=== PATIENT | female | born 1955 | race Caucasian/White ===

== ENCOUNTER 2018-12-13 10:47 | Inpatient (IN) ==
--- NOTE | 2018-12-12 15:10 | EKG Report ---
Test Performed on : 12/12/2018 2:45:10 PM Test Reason : PAT Blood Pressure : / mmHG Vent. Rate : 081 BPM Atrial Rate : 081 BPM P-R Int : 120 ms QRS Dur : 082 ms QT Int : 370 ms P-R-T Axes : 028 078 018 degrees QTc Int : 429 ms Normal sinus rhythm. Normal ECG No previous ECGs available Confirmed by Darleen CAMARENA, Jonathon Xie ([id number]) on 12/12/2018 4:20:34 PM
[2018-12-12 15:21] LABS: BASO# 0.03 X1000 (0.0-0.2); BASO% 0.2 % (0.0-0.8); EOS# 0.03 X1000 (0.0-0.7); EOS% 0.2 % (0.0-10.0); HEMATOCRIT 32.7 % (37.0-47.0); HEMOGLOBIN 10.5 g/dL (12.0-16.0); IMM GRAN# 0.14 X1000 (0.0-0.04); LYMPH# 1.11 X1000 (1.2-3.4); LYMPH% 7.9 % (20.5-51.1); MCH 26.7 PG (27-31); MCHC 32.1 g/dL (33-37); MCV 83.2 FL (81-99); MONO# 1.24 X1000 (0.11-0.59); MONO% 8.9 % (1.7-9.3); MPV 9.9 FL (7.4-10.4); NEUT# 11.45 X1000 (1.4-6.5); NEUT% 81.8 % (42.2-75.2); PLT 549 X1000 (130-400); RBC 3.93 XMIL (4.2-5.4); RDW 13.3 % (11.5-14.5)
[2018-12-12 15:54] LABS: ESTIMATED GFR > 60
[2018-12-12 15:57] LABS: AGAP 11; BUN 21 mg/dL (8-22); CALCIUM 9.9 mg/dL (8.8-10.2); CHLORIDE 88 mmol/L (98-107); COSMO 270; CREATININE 0.8 mg/dL (0.5-0.9); GLUCOSE 382 mg/dL (70-104); POTASSIUM 4.5 mmol/L (3.5-5.1); SODIUM 125 mmol/L (136-145); TCO2 26 mmol/L (25-35)
[2018-12-13] MEDS ORDERED: LR 1,000 ML ONE (11:30)
[2018-12-13] MEDS ORDERED: KEFZOL 1 GM/D5W 2 GM/100 ML IVPB ONE (11:30)
[2018-12-13] MEDS ORDERED: REGLAN ONE (12:01)
[2018-12-13] MEDS ORDERED: TRANSDERM-SCOP ONE (12:01)
[2018-12-13] MEDS ORDERED: HUMULIN R ONE (12:01)
[2018-12-13] MEDS ORDERED: PEPCID ONE (12:01)
[2018-12-13] MEDS ORDERED: SENSORCAINE 0.5%-EPI 1:200,000 ONE (12:28)
[2018-12-13] MEDS ORDERED: NORCO-10 ONE (12:40)
[2018-12-13] MEDS ORDERED: XYLOCAINE-MPF 2% ONE (13:15)
[2018-12-13] MEDS ORDERED: ROBINUL ONE (13:15)
[2018-12-13] MEDS ORDERED: QUELICIN (DOSE) ONE (13:19)
[2018-12-13] MEDS ORDERED: NORCURON ONE (13:20)
[2018-12-13] MEDS ORDERED: STERILE WATER INJ. ONE (13:20)
[2018-12-13] MEDS ORDERED: FENTANYL ONE (13:21)
[2018-12-13] MEDS ORDERED: LUBRIFRESH PM OPH OINTMENT ONE (13:22)
[2018-12-13] MEDS ORDERED: DIPRIVAN 1% ONE (13:22)
[2018-12-13] MEDS ORDERED: HUMULIN R SUBQ ONE (16:00)
[2018-12-13] MEDS ORDERED: NS 1,000 ML ONE (16:44)
[2018-12-13] MEDS ORDERED: VANCOMYCIN IV PER PHARMACY MISC SCH (17:15)
--- NOTE | 2018-12-13 18:35 | OPERATIVE NOTE ---
PROCEDURE DATE: 12/13/2018 PREOPERATIVE DIAGNOSIS: Left shoulder abscess and possible septic left shoulder joint. POSTOPERATIVE DIAGNOSIS: Left shoulder anterior abscess and infected left shoulder joint. PROCEDURE: Irrigation and debridement of anterior left shoulder abscess and irrigation, lavage and drainage of the left shoulder glenohumeral joint as well as diagnostic arthroscopy. ANESTHESIA: General. SURGEON: Tommie Paniagua MD. SPORTS LAWYER: CRISTI Leahy COMPLICATIONS: None. BLOOD LOSS: Minimal. DESCRIPTION OF PROCEDURE: Patient was brought to the operative suite and placed in supine position. After successful administration of general anesthesia, patient was placed in the beach chair position. Left shoulder was prepped and draped in usual sterile fashion. A transverse incision was made overlying the anterior carbuncle. This was dissected sharply through the skin. There was obvious purulent material. This was cultured and then the wound was copiously irrigated and debrided of all necrotic material that it went all the way down to the acromioclavicular joint and into the joint. This was copiously irrigated with normal saline containing irrigant and Vashe irrigation. A trocar was then entered into the glenohumeral joint posteriorly and the obvious pus was flowing from the glenohumeral joint as well. An anterior portal was made, and the shoulder was copiously irrigated with normal saline containing irrigant and Vashe irrigation. Once we completed this, it was inspected with the arthroscope and found to have significant degenerative changes in here shoulder as well as compromised rotator cuff. A drain was placed through the anterior portal into the glenohumeral joint and then the trocar was removed leaving the drain in place. Another drain was placed exiting laterally from the carbuncle. This drain was buried into the acromioclavicular joint. The wounds were reapproximated with interrupted nylon suture, and a sterile dressing was applied. The patient tolerated the procedure without complication. At the end of the procedure, all counts were correct. The patient was transferred to the recovery room in stable condition. cc: Tommie Paniagua MD
[2018-12-13] MEDS: VANCOMYCIN 2 GM in NS 500 ML IV SCH (18:43)
--- NOTE | 2018-12-13 19:46 | INFECTIOUS DISEASE CONSULT REP ---
DATE: 12/13/2018 CONCLUSION: The patient has a left shoulder abscess and septic arthritis. RECOMMENDATIONS: I agree with the decision to treat the patient with vancomycin. Some of the side effects of the antibiotic, including renal toxicity and ototoxicity, have been explained to the patient who agrees with treatment. DISCUSSION: The patient tells me that approximately 4 to 5 weeks ago she jerked her left shoulder forward and backward, but did not run into any trauma to the shoulder such as falling on it or hitting it against the door. The shoulder progressively started swelling. The skin became erythematous and the patient had fever. She underwent surgery today by Dr. Paniagua and an abscess was found along with purulence in the shoulder joint. Laboratory studies thus far, the left shoulder Gram stain showed no organisms. The culture is pending. Glucose was 382, creatinine was 0.8. GFR is greater than 60. CBC shows a white count of 14,000, hemoglobin 10.5 and platelet count 549,000. The patient has never been . REVIEW OF SYSTEMS: Patient's hearing and vision, no loss of hearing or vision. Bones, joints, muscles: See present illness. Neck: No stiffness. Respiratory: No cough or shortness of breath. Cardiac: No chest pain or palpitations. GI: No nausea, vomiting, or diarrhea. : No dysuria or flank pain. Endocrine: The patient has diabetes but not thyroid disease. Neurologic: No seizures. No loss of motor or sensory function except with her left arm since it has been hurting her. She cannot move it well and it hurts her a lot when she tries to. 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 PREVIOUS HOSPITALIZATIONS AND OPERATIONS: The patient had bilateral Achilles tendon surgeries, right carpal tunnel surgery, a right rotator cuff procedure and placement of a coronary artery stent. MEDICAL DISEASES: Obesity, diabetes mellitus, hypertension, coronary artery disease, osteoarthritis, and hyperlipidemia. INFECTIOUS DISEASE HISTORY: Positive for pneumonia and UTI. FAMILY HISTORY: Positive for diabetes mellitus, hypertension, myocardial infarction, stroke and cancer. SOCIAL HISTORY: [place] She is single. Occasionally, her brother spends time with her. She has 2 dogs and a cat for pets. She has an allergy to penicillin manifested by swelling and/or rash. She does not smoke cigarettes, drink alcoholic beverages or abuse drugs. HOME MEDICATIONS: Involve aspirin, Lipitor, Plavix, Neurontin, hydrocodone, insulin, lisinopril, Zoloft and Januvia. PHYSICAL EXAMINATION: Vital Signs: Temperature is 98 degrees, pulse 94, respirations 18, blood pressure 133/75. The patient is 5 feet 5 inches tall, weighs 232 pounds. General: This is an obese, middle-aged female. She is in no acute distress. Head/eyes/ears/nose/throat: She can hear my spoken words and see near objects. She does not have any white patches in her mouth. Neck: No meningismus. Lungs: Clear to auscultation. Cardiovascular: Regular heart rate. Abdomen: Soft and nontender. Bones, joints, muscles: The patient has a large dressing around her left shoulder. The dressing is intact. Neurologic: The patient is alert. She can move her right arm and both legs. She has her left arm with a large dressing on it and in a sling. The patient's memory as regarding her medical history is intact. Integument: No rash. Thank you for the consult. cc: MD Tommie Manzano MD
--- NOTE | 2018-12-13 20:45 | CONSULTATION ---
DATE OF CONSULTATION: 12/13/2018 REASON FOR CONSULT: Medical management. HISTORY OF PRESENTING COMPLAINT: Ms. Rodriguez is a 63-year-old female who was admitted under Orthopedic Team after she underwent I and D of the left shoulder because of an abscess, and she has been admitted because of other numerous comorbidities for medical management at this point. Ms. Rodriguez has a history of diabetes, hypertension, dyslipidemia, coronary artery disease status post stents about 4 years ago. She seems to have been in her regular state of health until about a month ago she started having excruciating pain and swelling of the left shoulder. Apparently, she went to an urgent care. She was given some pain medication. That did not help. She went back about a week later. She was told that it could be gout, so she was given medication accordingly, which did not help so she was referred to go and see orthopedics about 4 days ago where she was evaluated by Dr. Paniagua, and a decision for intervention was made. The patient was subsequently brought in on outpatient basis, and surgery was done today. PAST MEDICAL HISTORY: 1. Diabetes mellitus. 2. Dyslipidemia. 3. Hypertension. 4. Coronary artery disease status post stents. HOME MEDICATIONS: Include: 1. Lisinopril 30 mg daily. 2. Sertraline 50 mg p.o. daily. 3. Clopidogrel 75 mg p.o. daily. 4. Januvia 100 mg p.o. daily. 5. Insulin glargine 40 subcutaneous at bedtime. 6. Aspart 20 units with meals. 7. Atorvastatin 80 mg p.o. daily. 8. [place] 10 mg q.8 hours. PAST SURGICAL HISTORY: 1. Left Achilles heel tendon removal. 2. Right rotator cuff surgery. 3. Lumbar neurosurgical procedure. 4. Recent left shoulder I and D. FAMILY HISTORY: Diabetes mellitus in brother. SOCIAL HISTORY: Patient lives here in [place] with a brother that she normally takes care of because of very bad diabetes mellitus. Ms. Rodriguez denies any alcohol use or tobacco use. No recreational drug use. ALLERGIES: To penicillin. REVIEW OF SYSTEMS: A 14-point review of systems conducted with Ms. Rodriguez is unremarkable except what we have in the HPI. She denies any fever. No chills. No appetite changes. No diarrhea. No chest pain. No shortness of breath. PHYSICAL EXAMINATION: Current vitals: Blood pressure is 133/74, pulse of 94, respirations is 18, temperature is 98.1 degrees. General: Ms. Rodriguez is a 63-year-old female. She was in bed. She does not seem to be in any cardiopulmonary distress. ENT: Mucosa is pink and moist. Anicteric. Acyanotic. Neck: Supple. There is no JVD. No carotid bruit. Trachea is midline. There is no thyromegaly. Head: Normocephalic and atraumatic. Respiratory system: There is good air entry bilaterally. No crepitations. No rhonchi. No accessory muscle use. Cardiovascular: Regular rate and rhythm. No murmurs, no rubs, no gallops. [place] beat is at 5th intercostal space, midclavicular line. Gastrointestinal: Abdomen is soft. It is nontender. Bowel sounds present. There is no hepatosplenomegaly. Inguinal region is unremarkable. Genitourinary: Was not examined. Extremities: No pedal edema. Distal pulses are present. Central nervous system: Patient is awake, alert, oriented. Executive functions are intact. Motor is 5/5 in all extremities. Sensation is intact. Cranial nerves 2 through 12 have been grossly examined. They are intact. Musculoskeletal: The left shoulder is currently covered in sterile dressing. There is a draining system in place after the recent surgery. Psychiatric: The patient is very cooperative and has good understanding and judgment. REVIEW OF OPERATIVE REPORT: Showed that the procedure performed was an irrigation and debridement of an anterior left shoulder abscess and irrigation, lavage and drainage of the left shoulder glenohumeral joint as well as diagnostic arthroscopy. ASSESSMENT: 1. Left shoulder septic arthritis. Patient is status post incision and drainage. I believe cultures were done during this surgery so we will be waiting on culture report. 2. Mild clinical volume depletion. Patient is currently on IV fluids. 3. Uncontrolled diabetes with glucose level of 382. We are going to restart the patient back on insulin regimen, and we will also check her A1c. 4. History of dyslipidemia. We will start the patient on home medications. 5. History of coronary artery disease, currently asymptomatic. The patient will be started back on aspirin, lisinopril, atorvastatin. Plavix has been withheld until it is okay with surgery about hemostasis. In general, Ms. Rodriguez is currently on IV vancomycin which we agree. We are going to be pending the culture report. We have restarted her back on her home medications. We will also gently hydrate her overnight and recheck on her electrolytes. We will re-evaluate her hydration status tomorrow and recheck on her electrolytes. We thank you for the opportunity to assist in the care of Ms. Rodriguez. cc: MD Tommie Larry MD
[2018-12-13] MEDS ORDERED: LANTUS INSULIN SUBQ SCH (21:00)
[2018-12-13] MEDS: NORCO-7.5 PO PRN (21:17)
[2018-12-13] MEDS: PERIDEX MT SCH (21:20)
[2018-12-13] MEDS: NEURONTIN PO SCH (21:21)
[2018-12-13] MEDS: HUMALOG SUBQ SCH (23:20)
[2018-12-13] MEDS: NS 1,000 ML IV SCH (23:27)
[2018-12-14] MEDS ORDERED: HUMALOG SUBQ ONE (02:00)
[2018-12-14] MEDS: NORCO-10 PO PRN ×2 (02:35→22:18)
[2018-12-14 06:32] LABS: HEMOGLOBIN A1C 7.5 % (4.8-6.0)
[2018-12-14] MEDS: HUMALOG SUBQ SCH ×7 (06:54→22:17)
[2018-12-14] MEDS ORDERED: HUMALOG SUBQ SCH (08:00)
[2018-12-14] MEDS: ASPIRIN EC PO SCH (09:10)
[2018-12-14] MEDS: ZOLOFT PO SCH (09:11)
[2018-12-14] MEDS: PRINIVIL PO SCH (09:12)
[2018-12-14] MEDS: LIPITOR PO SCH (09:12)
[2018-12-14] MEDS: NEURONTIN PO SCH ×2 (09:13→22:18)
[2018-12-14] MEDS: NS 1,000 ML IV SCH ×2 (09:15→14:14)
[2018-12-14] MEDS: PERIDEX MT SCH ×2 (09:15→22:16)
--- NOTE | 2018-12-14 12:11 | ORTHOPAEDICS PROGRESS NOTE ---
DATE: 12/14/2018 SUBJECTIVE: The patient is a pleasant 63-year-old female who is 1 day status post irrigation and debridement of anterior left shoulder abscess and arthroscopic lavage of left shoulder per Dr. Paniagua. The patient is currently sitting in the chair and resting comfortably. OBJECTIVE: The patient is afebrile. Her cultures are pending. She is able to flex all of her fingers. Her output of her Hemovac has been 20 mL. IMPRESSION: Status post incision and debridement and arthroscopic lavage, left shoulder. PLAN: At this point, we will change her dressing the discontinue her drain. We will continue her IV antibiotics and await the cultures and Dr. Gandhi' recommendations. cc: MD Tommie García MD
--- NOTE | 2018-12-14 14:06 | PROGRESS NOTE ---
DATE: 12/14/2018 SUBJECTIVE: This morning Ms. Rodriguez refers to be doing a lot better. She was sitting up in a chair at the time of the encounter. She denies any new complaints. She was requesting to know when she will potentially be discharged. OBJECTIVE: Vital signs: Blood pressure is 101/47, pulse of 66, respirations 20, temperature 98.4 degrees. General exam: Ms. Rodriguez is a 63-year-old female. She was sitting up in a chair in no distress. HEENT: Mucosa is pink and moist. Anicteric. Acyanotic. Neck: Supple. Chest: Good air entry bilaterally. No crepitations. No rhonchi. Cardiovascular: Regular rate and rhythm. No murmurs, no rubs, no gallops. GI: Abdomen is soft, nontender. Bowel sounds present. Extremities: No pedal edema. Distal pulses are present. 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 Musculoskeletal: There is still a dressing over the left shoulder, and the draining system is still in place. LAB: No lab work for this morning. So far, left shoulder culture showing gram-positive cocci. We are still awaiting for the ID and sensitivity. ASSESSMENT: 1. Left shoulder abscess with septic arthritis. Patient is status post and incision and drainage. So far, the wound culture is showing gram-positive cocci. Patient is currently on intravenous vancomycin. We are going to continue with the current antimicrobial therapy. Infectious Disease is on board. 2. My clinical volume depletion improved with intravenous resuscitation. 3. Uncontrolled diabetes mellitus. We will continue with insulin regimen. Patient's A1c is 7.5, so we will put her back on her home regimen. 4. History of coronary artery disease, currently asymptomatic. 5. Dyslipidemia. Patient is on statin medication. PLAN: So, in general, I think Ms. Rodriguez is doing fairly okay after surgery. We are still pending the culture report; it looks like it is growing gram-positive cocci. The patient is on IV vancomycin. Orthopedics and ID are on board. cc: MD Tommie Larry MD
[2018-12-14] MEDS: NORCO-7.5 PO PRN (14:10)
[2018-12-14] MEDS: VANCOMYCIN 2 GM in NS 500 ML IV SCH (18:35)
[2018-12-14] MEDS: LANTUS INSULIN SUBQ SCH (22:16)
[2018-12-15 06:26] LABS: BASO# 0.04 X1000 (0.0-0.2); BASO% 0.3 % (0.0-0.8); EOS% 0.7 % (0.0-10.0); HEMATOCRIT 32.1 % (37.0-47.0); HEMOGLOBIN 10.1 g/dL (12.0-16.0); IMM GRAN# 0.35 X1000 (0.0-0.04); IMM GRAN% 2.3 % (0.0-0.5); LYMPH# 1.65 X1000 (1.2-3.4); LYMPH% 10.8 % (20.5-51.1); MCH 26.6 PG (27-31); MCHC 31.5 g/dL (33-37); MCV 84.5 FL (81-99); MONO# 1.14 X1000 (0.11-0.59); MONO% 7.5 % (1.7-9.3); MPV 9.8 FL (7.4-10.4); NEUT# 11.96 X1000 (1.4-6.5); NEUT% 78.4 % (42.2-75.2); PLT 536 X1000 (130-400); RDW 13.7 % (11.5-14.5); WBC 15.24 X1000 (4.8-10.8)
[2018-12-15] MEDS: NORCO-10 PO PRN (06:33)
[2018-12-15 07:13] LABS: AGAP 10; ALBUMIN 2.3 g/dL (3.5-5.0); BUN 19 mg/dL (8-22); CALCIUM 8.8 mg/dL (8.8-10.2); CHLORIDE 100 mmol/L (98-107); COSMO 280; CREATININE 0.8 mg/dL (0.5-0.9); ESTIMATED GFR > 60; GLUCOSE 209 mg/dL (70-104); PHOSPHORUS 3.6 mg/dL (2.7-4.5); POTASSIUM 4.8 mmol/L (3.5-5.1); SODIUM 136 mmol/L (136-145); TCO2 26 mmol/L (25-35)
[2018-12-15] MEDS: NS 1,000 ML IV SCH (08:22)
[2018-12-15] MEDS: HUMALOG SUBQ SCH ×7 (08:36→22:26)
[2018-12-15] MEDS: ASPIRIN EC PO SCH (08:48)
[2018-12-15] MEDS: NEURONTIN PO SCH ×2 (08:49→22:28)
[2018-12-15] MEDS: ZOLOFT PO SCH (08:50)
[2018-12-15] MEDS: PRINIVIL PO SCH (08:51)
[2018-12-15] MEDS: PERIDEX MT SCH ×2 (08:51→22:27)
[2018-12-15] MEDS: LIPITOR PO SCH (08:51)
--- NOTE | 2018-12-15 09:05 | ORTHOPAEDICS PROGRESS NOTE ---
DATE: 12/15/2018 SUBJECTIVE: The patient is a pleasant, 63-year-old female who is 2 days status post incision and drainage, and arthroscopic lavage of left shoulder per Dr. Paniagua. The patient is resting comfortably. OBJECTIVE: On physical exam, the patient's dressing is intact. She is able flex and extend all of her fingers. Good manager occupational strength. Her WBC is 15.24, hemoglobin is 10.1, hematocrit is 32.1, platelets are 536,000. Her culture is revealing Staphylococcus aureus. IMPRESSION: Postoperative day #2 status post incision and drainage, and arthroscopic lavage of left shoulder. PLAN: At this point, the patient will continue her IV antibiotics per Dr. Gandhi. I did discuss with Dr. Ganhdi and the patient will require home IV antibiotics. cc: MD Tommie García MD
--- NOTE | 2018-12-15 10:25 | INFECTIOUS DISEASE PROGRESS NO ---
DATE: 12/15/2018 HISTORY OF PRESENT ILLNESS: The patient has an oxacillin sensitive Staph aureus left shoulder abscess and septic arthritis. MEDICATIONS: Because the patient has a severe penicillin allergy manifested by hives, I am going to be treating the patient with vancomycin. PHYSICAL EXAMINATION: Vital Signs: Temperature is 98.8 degrees, pulse 78, respirations 20, blood pressure 130/51. General: This is an obese, middle-aged female. She is in no acute distress. Head, eyes, ears, nose, and throat: She can hear my spoken words and see near objects. She does not have any white coating on her tongue. Neck: She does not have any pain in her neck when she moves her head or her neck. Lungs: Clear to auscultation. Cardiovascular: Heart rate is regular. Abdomen: Soft and nontender. Extremities: The patient has a large dressing on the shoulder area. The dressing is intact. Neurologic: Patient is alert. She can move her extremities. There is no tremor. Integument: No rash noted. LABS AND X-RAY: The patient's culture grew an oxacillin sensitive Staph aureus. The culture was from the abscess and the shoulder joint. The creatinine is 0.8. GFR is greater than 60. CBC shows a white count of 15,240, hemoglobin 10.1, and platelet count 536,000. ASSESSMENT AND PLAN: The patient has an oxacillin sensitive Staph aureus left shoulder abscess and septic arthritis. Unfortunately, she has a very severe allergy to penicillin manifested by hives. For that reason, I am going to be treating the patient with vancomycin for a total of 6 weeks. The patient will have an appointment at my office in 20 days and then at 40 days. The PICC will be removed and hopefully no further antibiotics will be needed at the last appointment. COMORBIDITIES: The patient had an incident where she jerked her left shoulder forward and backward and it was during this time that she most likely developed an infection in her shoulder. Exactly how this happened is uncertain to me. Also another comorbidity in this patient is that she is a diabetic. cc: MD Tommie Manzano MD MTDD
--- NOTE | 2018-12-15 11:34 | PROGRESS NOTE ---
DATE: 12/15/2018 SUBJECTIVE: Today, Ms. Rodriguez refers to be feeling a lot better. Denies any complaints. OBJECTIVE: Vital Signs: Blood pressure is 130/51, pulse of 78, respirations 20, temperature 98.8 degrees. General: Ms. Rodriguez is a 63-year-old female. She was sitting in the chair in no distress. HEENT: Mucosa is pink and moist. Anicteric. Acyanotic. Neck: Supple. Chest: Good air entry bilaterally. There was no crepitations, no rhonchi. Cardiovascular: Regular rate and rhythm. No murmurs, no rubs, no gallops. GI: Abdomen is soft, nontender. Bowel sounds present. Extremities: No pedal edema. 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 Musculoskeletal: There is a dressing over the left shoulder. Drain has been removed. LABORATORY DATA: WBC is 15.24, hemoglobin is 10.1, platelet count of 526,000. Chemistry is also reviewed and unremarkable, except for glucose of 209. So far, shoulder has shown MSSA. ASSESSMENT: 1. Left shoulder methicillin-sensitive Staphylococcus aureus abscess with septic arthritis. The patient is status post incision and drainage. She is on vancomycin. There is a plan to continue treatment with vancomycin because of severe penicillin allergies. 2. Clinical volume depletion, resolved. 3. Uncontrolled diabetes mellitus. The patient is on insulin regimen. 4. History of coronary artery disease, currently asymptomatic. 5. Dyslipidemia. In general, I think Ms. Rodriguez is doing fairly okay. The culture has shown methicillin-sensitive Staphylococcus aureus. However, she has severe penicillin allergies, so Infectious Disease has chosen to treat her with vancomycin. There is a plan for peripherally-inserted central catheter line placement tomorrow. After that, she can be discharged. cc: MD Tommie Larry MD
[2018-12-15] MEDS: VANCOMYCIN 2 GM in NS 500 ML IV SCH (17:56)
[2018-12-15] MEDS: NORCO-5 PO PRN ×2 (19:45→22:26)
[2018-12-15] MEDS: LANTUS INSULIN SUBQ SCH (22:27)
[2018-12-16 06:06] LABS: INR 1.17; PROTIME 15.8 Seconds (11.0-16.0)
[2018-12-16] MEDS: HUMALOG SUBQ SCH ×4 (07:07→12:32)
[2018-12-16] MEDS ORDERED: NS 250 ML ONE (07:59)
[2018-12-16] MEDS: NEURONTIN PO SCH (08:25)
[2018-12-16] MEDS: ASPIRIN EC PO SCH (08:25)
[2018-12-16] MEDS: PERIDEX MT SCH (08:25)
[2018-12-16] MEDS: PRINIVIL PO SCH (08:26)
[2018-12-16] MEDS: LIPITOR PO SCH (08:26)
[2018-12-16] MEDS: ZOLOFT PO SCH (08:26)
[2018-12-16 11:23] VITALS: BP 137/63
[2018-12-16] MEDS: NORCO-10 PO PRN (13:04)
--- NOTE | 2018-12-18 12:16 | INFECTIOUS DISEASE PROGRESS NO ---
DATE: 12/16/2018 PRESENT ILLNESS: The patient has an oxacillin-sensitive Staphylococcus aureus left shoulder abscess and septic arthritis. MEDICATIONS: Because the patient has a severe penicillin allergy, I am going to be treating her with IV vancomycin. PHYSICAL EXAMINATION: Vital Signs: Temperature is 99.7, pulse of 66, respirations 16, blood pressure 110/38. General: This is an obese, middle-aged female. She is in no acute distress. Head, Eyes, Ears, Nose, and Throat: She can hear my spoken word and see near objects. She does not have any white patches on her tongue. Neck: Supple. No meningismus. Lungs: Clear to auscultation. Cardiovascular: Heart rate is regular. Abdomen: Soft and nontender. Extremities: The patient has a large dressing on her shoulder. Area of the dressing is intact. Neurologic: The patient is alert. She can ambulate without difficulty. There is no tremor. Integument: No rash. LAB AND X-RAY: There is no new lab or x-ray for today. ASSESSMENT AND PLAN: The patient has a Staphylococcus aureus left shoulder abscess and septic arthritis for which I am going to be treating her with vancomycin for six weeks. The plan is to have the patient come back to my office in 20 days and then again at 40 days. At the 40 day visit, hopefully, the peripherally inserted central catheter will be able to be removed and no further antibiotics will be needed. COMORBIDITIES: Somehow, the patient injured her shoulder and that caused it to get infected. The patient also is a diabetic. cc: MD Tommie Manzano MD
== END 2018-12-16 13:37 | disposition home health service (06) | DRG 507 ==
LOC: OPS 10:47 → 4N 17:09
PROVIDERS: ADMIT Orthopaedic Surgery; ATTEND Orthopaedic Surgery
CPT/HCPCS: 36569; 80048; 80069; 82948; 83036; 85025; 85610; 87070; 87075; 87077; 87186; 87205; 93005; 93010; 94761; 94799; A9270; J0330; J0690; J1815; J3010; J3370; J7030; J7040; J7050; J7120; XXXXX

== ENCOUNTER 2019-01-23 10:46 | Inpatient (IN) ==
[2019-01-23] MEDS ORDERED: TYLENOL PO PRN (12:55)
[2019-01-23] MEDS ORDERED: ZOFRAN IV PRN (12:55)
[2019-01-23] MEDS ORDERED: VANCOMYCIN IV PER PHARMACY MISC SCH (13:15)
[2019-01-23 13:59] LABS: BASO# 0.03 X1000 (0.0-0.2); BASO% 0.2 % (0.0-0.8); EOS# 0.22 X1000 (0.0-0.7); EOS% 1.6 % (0.0-10.0); HEMATOCRIT 28.9 % (37.0-47.0); HEMOGLOBIN 8.7 g/dL (12.0-16.0); IMM GRAN# 0.09 X1000 (0.0-0.04); IMM GRAN% 0.7 % (0.0-0.5); LYMPH# 1.43 X1000 (1.2-3.4); LYMPH% 10.6 % (20.5-51.1); MCH 24.4 PG (27-31); MCHC 30.1 g/dL (33-37); MONO# 0.59 X1000 (0.11-0.59); MONO% 4.4 % (1.7-9.3); MPV 9.7 FL (7.4-10.4); NEUT# 11.12 X1000 (1.4-6.5); NEUT% 82.5 % (42.2-75.2); PLT 442 X1000 (130-400); RBC 3.57 XMIL (4.2-5.4); RDW 14.6 % (11.5-14.5); WBC 13.48 X1000 (4.8-10.8)
[2019-01-23] MEDS ORDERED: NS 500 ML IV ONE (14:06)
[2019-01-23 14:09] LABS: INR 1.18
[2019-01-23 14:10] LABS: PTT 32.4 Seconds (22.3-41.8)
[2019-01-23 14:16] LABS: ALB/GLOB RATIO 0.6; ALBUMIN 2.6 g/dL (3.5-5.0); CALCIUM 9.2 mg/dL (8.8-10.2); POTASSIUM 4.2 mmol/L (3.5-5.1); TOTAL BILIRUBIN 0.26 mg/dL (0.20-1.00); TOTAL PROTEIN 6.6 g/dL (6.3-8.3)
--- NOTE | 2019-01-23 14:23 | INFECTIOUS DISEASE PROGRESS NO ---
DATE: 01/23/2019 PRESENT ILLNESS: Ms. Rodriguez has been treated for an oxacillin-sensitive Staph aureus left shoulder abscess and septic arthritis. She has been receiving IV vancomycin at home. She has had a recent fall with complaints of back pain. We called her at home today because her white blood cell count has been continually rising. There is also continued drainage from her left shoulder. We have asked that she be readmitted due to leukocytosis and continuing left shoulder drainage after near completion of her 6 weeks of IV home antibiotics. MEDICATIONS: She has been receiving IV vancomycin per pharmacy dosing at home because she has had a severe reaction to penicillins in the past. PHYSICAL EXAMINATION: Vital Signs: Temperature is 98.2 degrees, pulse rate 97, respiratory rate 16, blood pressure 93/52, O2 saturation is 98% on room air. She is 5 feet tall and 100 kg. General: This is a chronically ill-appearing, morbidly obese, middle-aged female. She is lying in the bed on her left lateral side, in no acute distress. She has just recently been admitted to the hospital from home. HEENT: Atraumatic, normocephalic. Oral mucous membranes are pink and moist. Conjunctivae are pale. Neck: Supple. Trachea is midline. Cardiovascular: Heart rate is regular. Respiratory: Lung sounds are generally clear to auscultation. Diminished in the bases. No work of breathing is noted. Abdomen: Soft, obese, and nontender. Bowel sounds are active. Neurologic: She is mildly lethargic but arousable. Upon sitting up from the lying position in the bed she did have a moment of decreased response where she did not answer my question if she was okay or not, until the 3rd time. Integumentary: There is a PICC line in place to the right upper arm. That site is without edema, erythema, or drainage. The dressing was removed from her left shoulder which has some pink-purple coloration, and an incision which has mostly healed, with a small open area with cloudy, yellow-pink drainage, which was cultured. LABORATORY AND X-RAY: None have been obtained yet today. Yesterday her white count was 13.9, hemoglobin 8.6, platelet count 467,000 and on Sunday her creatinine was 0.9 with a vancomycin trough of 15. Her left shoulder culture back in November grew an oxacillin-sensitive Staph aureus. No imaging reports yet today. ASSESSMENT AND PLAN: Ms. Rodriguez has been admitted to the hospital due to leukocytosis and continued drainage after almost 6 weeks of treatment for her left shoulder septic arthritis. The plan at this point is to continue her vancomycin, to which we will add aztreonam 2 g IV every 8 hours for gram-negative coverage. Another culture has been obtained and is in the lab. Also, blood cultures have been ordered. For now, we will continue to watch the final cultures and have asked Dr. Leyva to see the patient. The previous left shoulder abscess irrigation and debridement with drain placement was done by Dr. Paniagua back in November. These plans have been discussed with and recommended by Dr. Gandhi. COMORBIDITIES: for Ms. Rodriguez include morbid obesity, coronary artery disease, diabetes mellitus, and osteoarthritis. Dictated by CRISTI Alberts for Wil Gandhi MD cc: Wil Gandhi MD MTDD
--- NOTE | 2019-01-23 14:35 | Diag Imaging Result Doc PS360 ---
XRAY HIP W/PELVIS BILAT 3-4VWS - 01/23/2019 INDICATION: recent fall TECHNIQUE: Five views COMPARISON: None FINDINGS: There is advanced degenerative spurring of the iliac wings and greater trochanters bilaterally. There is mild to moderate bilateral hip osteoarthritis. No fracture or dislocation. There is advanced vascular disease with calcification of the femoral arteries. IMPRESSION: Degenerative changes. Electronically signed by Jose Rafael Elaine 01/23/2019 2:32 PM
[2019-01-23] MEDS: NS 1,000 ML IV SCH (14:53)
[2019-01-23] MEDS: AZACTAM 2 GM in NS 100 ML IV SCH (16:00)
[2019-01-23] MEDS: VANCOMYCIN 1,500 MG in NS 250 ML IV SCH (16:00)
--- NOTE | 2019-01-23 16:11 | HISTORY AND PHYSICAL ---
CHIEF COMPLAINT: Direct admit from Dr. Wil Gandhi. HISTORY OF PRESENT ILLNESS: Ms. Rodriguez is a 63-year-old female who carries a past medical history of left shoulder abscess and septic arthritis of the left shoulder joint and subacromial space. She has undergone arthroscopic lavage, examination of the left shoulder, as well as open irrigation and debridement of the anterior abscess by Dr. Paniagua. She has been on IV antibiotics with vancomycin under the direction of Dr. Wil Gandhi. The patient called Dr. Gandhi' office today, and states that she fell and slid down the wall on Sunday or Sunday and was complaining of back pain that seemed to be coming from her shoulder. Per home health report, her WBC continued to increase. She does have an MRSA septic arthritis. She states since the beginning of October when the infection started, she has had to start walking with a cane. She has had issues with her balance and vertigo, and has fallen about 4 to 5 times since then. She reports that she also believes that her home blood pressure medicine has been making her hypotensive. She did have an episode when Kylah, the nurse practitioner for Dr. Gandhi, was in there where they set her up on the side of the bed and she kind of spaced out for a minute. We will do orthostatics. Hold her blood pressure medication. Initial blood pressure was low 90s. We will give her a 500 L bolus, start her on IV fluids and continue with orthostatics q. [address] Gandhi has added antibiotic with her vancomycin, and we have also consulted Dr. Leyva with Orthopedics. A culture has been taken from her left shoulder as well. She denied any chest pain or any actual passing out. No headache, fever, chills, shortness of breath, nausea, vomiting, diarrhea. REVIEW OF SYSTEMS: Twelve-point review of systems completely negative, except for those mentioned in HPI. PAST MEDICAL HISTORY: 1. Left shoulder abscess with septic arthritis, status post arthroscopic lavage and open irrigation and debridement of the anterior abscess by Dr. Paniagua. On antibiotics by Dr. Gandhi. Has a PICC line to her right upper extremity. 2. Anxiety and depression. 3. Type 2 diabetes. 4. Gastroesophageal reflux disease. 5. Hypertension. 6. Hyperlipidemia. 7. Chronic kidney disease. 8. Osteoarthritis. 9. Sleep apnea. PAST SURGICAL HISTORY: 1. Left shoulder lavage and debridement. 2. Stenting 4 to 5 years ago to her coronaries, unknown which artery. ALLERGIES: Penicillin. HOME MEDICATIONS: Have not been verified. LABORATORY DATA: White count 13, hemoglobin and hematocrit 8 and 28, platelet count 442. Sodium 138, potassium 4.2, BUN 18, creatinine 1.0. Blood glucose was 78, alkaline phosphatase 136. DIAGNOSTIC DATA: Bilateral hip and pelvis x-ray showed degenerative changes. PHYSICAL EXAMINATION: VITAL SIGNS: Temperature is 98.2 degrees, heart rate 97, respirations 16, blood pressure 93/52, O2 is 98% on room air. GENERAL: Ms. Rodriguez is a pleasant 63-year-old female, who is lying on her left side in the bed in no acute distress. HEENT: Atraumatic, normocephalic. PERRL. NECK: Supple. Trachea midline. CV: S1, S2 appreciated. No murmurs, gallops, rubs noted. RESPIRATORY: Lung sounds clear bilaterally. GI: Soft, nontender, nondistended. Positive bowel sounds 4 quadrants. EXTREMITIES: Lower extremities negative for edema. Right upper extremity PICC line. CVA: Did not note any CVA tenderness. NEUROLOGIC: Patient is awake, alert, and oriented, follows commands. Moves all extremities. No focal deficits noted. ASSESSMENT AND PLAN: 1. Left shoulder abscess and septic arthritis of the left shoulder joint and subacromial space, status post arthroscopic lavage and open irrigation and debridement of the anterior abscess by Dr. Paniagua. She has been on intravenous antibiotics secondary to methicillin-resistant Staphylococcus aureus growing from the culture on intravenous vancomycin per Dr. Gandhi. We will continue vancomycin. They have added Azactam intravenous. We will ask Orthopedics to come and assess as well. They have re-taken a culture of her left shoulder. 2. Hypertension, borderline hypotension 93/52. We will hold her home blood pressure medication for now. Give her a 500 liter bolus. Check orthostatics stat, as well as orthostatics every 4 hours. She did have an episode when the nurse practitioner with Infectious Disease was in there, that when they sat her up she kind of went out for a second, not fully, but it took her a minute to come around. 3. Vertigo and balance issues. She has had 4 to 5 falls since the beginning of October when her infection started. She has been treated by Dr. Iglesias at [facility] for this. 4. Diabetes mellitus type 2. Will place her on sliding scale insulin with pattern blood sugars. 5. Situational anxiety and depression, aware. 6. Gastroesophageal reflux disease. 7. High cholesterol. 8. Chronic kidney disease, stable. 9. Osteoarthritis. 10. Sleep apnea. 11. Coronary artery disease status post stenting. No chest pain. Further recommendation to follow physician evaluation, laboratory and diagnostic data. Dictated by CRISTI Toussaint for Ervin Barragan MD cc: MD Tommie Manzano MD Robert S. Tapscott, MD Alan Gruman agree with the above. the following is my own face to face assessment. Patient with recent fall, subsequent hip pain, on exam some muscular tenderness in the bilateral low spine and hips. left shoulder with some minimal drainage. MTDD
[2019-01-23] MEDS: HUMALOG SUBQ SCH (17:01)
[2019-01-23] MEDS: NORCO-10 PO PRN (18:21)
--- NOTE | 2019-01-23 19:10 | ORTHOPAEDICS CONSULTATION ---
DATE: 01/23/2019 FAMILY PHYSICIAN: Dr. Wil Gandhi. CHIEF COMPLAINT: Left shoulder pain and direct admit from Dr. Wil Gandhi. HISTORY OF PRESENT ILLNESS: Ms. Rodriguez is a 63-year-old female who has a past medical history of left shoulder abscess and septic arthritis over the past month or so. About a month ago, she had an arthroscopic lavage done by Dr. Paniagua, where he did an irrigation and debridement of the left shoulder. She has been placed on IV antibiotics with a PICC line under Dr. Wil Gandhi. The patient was seen in Dr. Gandhi' office, and she had some increased white blood cells and has been having increased left shoulder pain. Dr. Gandhi reports that she has a MRSA septic arthritis infection. She was admitted for IV antibiotics and possible I D of the left shoulder again. Orthopedics was consulted and we came here to see the patient. REVIEW OF SYSTEMS: A 12-point review of systems was reviewed and all pertinent positives were listed in the HPI. PAST MEDICAL HISTORY: 1. Left shoulder abscess with septic arthritis. 2. Anxiety and depression. 3. Type 2 diabetes. 4. GERD. 5. Hypertension. 6. Hyperlipidemia. 7. Chronic kidney disease. 8. Osteoarthritis. 9. Sleep apnea. PAST SURGICAL HISTORY: Left shoulder lavage and debridement, and also she had a stent in one of her arteries about 5 years ago. ALLERGIES: She is allergic to penicillin. HOME MEDICATIONS: Not available at this time. LABORATORY DATA: White blood cell 13, hemoglobin 8.7, hematocrit 28.9, platelets 442,000. INR 1.18. Sodium 138, potassium 4.2, chloride 101, BUN 18, creatinine 1.0, glucose 78. Alkaline phosphatase 136. DIAGNOSTIC DATA: Bilateral hip and pelvis films show degenerative changes. We will obtain films of the left shoulder at this time. PHYSICAL EXAMINATION: Vital Signs: Temperature 98.0 degrees, pulse rate 76, blood pressure 122/52, pulse rate 94, oxygen saturation is 98% on room air. General: Ms. Rodriguez is sitting on the edge of the bed, in no acute distress, and having a drink of her soda. HEENT: Head is atraumatic and normocephalic. Pupils equal, round, reactive to light. Neck: Supple. Trachea midline. Cardiovascular: Regular rate and rhythm. Respiratory: There is equal chest expansion, rise, and fall. Gastrointestinal: Abdomen is soft, nontender. Extremities: Left upper extremity exam: The left shoulder does have a small area of indentation about the size of a pencil head with some drainage coming out. There is some mild tenderness to the left shoulder. There is decreased range of motion of about 40 degrees abduction. There is 5/5 manager of revenue strength. There is good radial pulse. There is good capillary refill in the hand. There is some notable redness to the anterior portion of the shoulder with some warmth. ASSESSMENT: Left shoulder abscess and septic arthritis of left shoulder. PLAN: We plan to monitor the patient overnight in the hospital. We will keep her NPO at this time. We are going to see how she reacts to the IV antibiotics at this time. We will check on her in the morning to re-evaluate things. Dictated by CRISTI Leahy for Raghu Leyva MD cc: CRISTI Leahy MD
--- NOTE | 2019-01-23 19:29 | Diag Imaging Result Doc PS360 ---
EXAM: SHOULDER-LEFT INDICATION: Shoulder pain. TECHNIQUE: 2 views COMPARISON: None. FINDINGS: There are prominent bone spurs at the inferior aspect of the acromion. There are degenerative changes at the AC joint. There is also glenohumeral degenerative change with bone spurs at the inferior aspect of the glenoid and the inferior aspect of the humeral head. There is no discrete fracture, dislocation, or significant intrinsic osseous lesion, otherwise. The surrounding soft tissues are essentially unremarkable by plain radiograph. IMPRESSION: Degenerative changes as described but no definite acute osseous abnormality by plain radiograph. Electronically signed by Dave Berry 01/23/2019 7:27 PM
[2019-01-24] MEDS: AZACTAM 2 GM in NS 100 ML IV SCH ×3 (00:28→16:21)
[2019-01-24] MEDS: NORCO-10 PO PRN ×5 (00:28→20:48)
[2019-01-24] MEDS: HUMALOG SUBQ SCH ×5 (01:52→20:47)
[2019-01-24] MEDS: NS 1,000 ML IV SCH (05:53)
[2019-01-24 06:47] LABS: BASO# 0.03 X1000 (0.0-0.2); BASO% 0.3 % (0.0-0.8); EOS# 0.26 X1000 (0.0-0.7); EOS% 2.4 % (0.0-10.0); HEMATOCRIT 27.5 % (37.0-47.0); IMM GRAN# 0.06 X1000 (0.0-0.04); IMM GRAN% 0.6 % (0.0-0.5); LYMPH# 1.65 X1000 (1.2-3.4); LYMPH% 15.5 % (20.5-51.1); MCH 23.6 PG (27-31); MCHC 29.1 g/dL (33-37); MCV 81.1 FL (81-99); MONO# 0.73 X1000 (0.11-0.59); MONO% 6.9 % (1.7-9.3); MPV 10.1 FL (7.4-10.4); NEUT# 7.91 X1000 (1.4-6.5); NEUT% 74.3 % (42.2-75.2); PLT 408 X1000 (130-400); RBC 3.39 XMIL (4.2-5.4); RDW 14.7 % (11.5-14.5); WBC 10.64 X1000 (4.8-10.8)
[2019-01-24 07:12] LABS: AGAP 12; ALB/GLOB RATIO 0.6; ALBUMIN 2.4 g/dL (3.5-5.0); ALKALINE PHOSPHATASE 132 U/L (32-104); BUN 17 mg/dL (8-22); CHLORIDE 104 mmol/L (98-107); COSMO 283; CREATININE 0.9 mg/dL (0.5-0.9); ESTIMATED GFR > 60; GLUCOSE 129 mg/dL (70-104); GOT 11 U/L (10-30); GPT 9 U/L (10-36); SODIUM 140 mmol/L (136-145); TCO2 24 mmol/L (25-35); TOTAL BILIRUBIN 0.22 mg/dL (0.20-1.00); TOTAL PROTEIN 6.2 g/dL (6.3-8.3)
--- NOTE | 2019-01-24 09:42 | ORTHOPAEDICS PROGRESS NOTE ---
DATE: 01/24/2019 SUBJECTIVE: Kortney Rodriguez is a 63-year-old female with a left septic shoulder. She has been on 6 weeks antibiotics and was readmitted for increased white count and continued drainage in her left shoulder. OBJECTIVE: Her shoulder actually looks better than it looked to in the office. We were packing the wound in the past given her brittle diabetes and not surprised it is taking longer than 6 weeks to clear up her for infection. At this point, her drainage is actually minimal compared to what it has been. ASSESSMENT: Left septic shoulder. PLAN: Hopefully she will improve with change of antibiotics. If she does not improve over the weekend we can consider repeat irrigation debridement of her shoulder, but her shoulder has actually much improved since I have seen her the last couple times in the office. She has a very small opening and minimal drainage. cc: Tommie Paniagua MD
--- NOTE | 2019-01-24 12:02 | INFECTIOUS DISEASE PROGRESS NO ---
DATE: 01/24/2019 PRESENT ILLNESS: The patient has been treated at home for an oxacillin sensitive Staph aureus left shoulder septic arthritis with an abscess. It was noted that the patient's white blood cell count had increased and also the drainage from the patient's shoulder increased quite a bit and so she has been readmitted to the hospital. MEDICATIONS: The patient now is on a combination of IV vancomycin and aztreonam. PHYSICAL EXAMINATION: Vital Signs: Temperature is 98.7 degrees, pulse 71, respirations 18, blood pressure is 138/65. The patient weighs 222 pounds. General: This is an obese, chronically ill- appearing middle-aged female. She is in no acute distress. Head, eyes, ears, nose and Throat: She can hear my spoken words and see near objects. She does not have any white patches in her mouth. Neck: No meningismus. Lungs: Clear to auscultation. Cardiovascular: Heart rate is regular. Abdomen: Soft and nontender. Bones, joints muscles: The patient has a PICC in her left arm. The PICC site is not erythematous or swollen. The patient's shoulder has an approximately 2 or 3 cm incision which currently appears to be closed, but did drain a lot of fluid yesterday. Neurologic: Patient is awake. She can move her extremities. There is no tremor. Her sensation is intact to touch. Her memory, as regarded in her medical history, was slightly decreased. LAB AND RADIOLOGY: The patient's x-ray of the shoulder shows degenerative changes, but no definite acute bone abnormality by plain radiographs. Patient's CBC showed that [place] [address] and [place] [address], hemoglobin is 8 and platelet count is 408,000. Patient's creatinine is 0.9 with a GFR of greater than 60. Liver function studies are normal except for slight elevation of the alkaline phosphatase at 132. The patient's blood cultures from yesterday are still pending. The culture from the patient's left shoulder is not growing anything today and on Gram stain no organisms are seen. ASSESSMENT AND PLAN: The patient has Staphylococcus aureus left shoulder infection and I plan to continue with vancomycin because the patient had a severe reaction to penicillin. For now, I am going to treat the patient with vancomycin and aztreonam. COMORBIDITIES: Patient has diabetes mellitus, osteoarthritis, and obesity. cc: Wil Gandhi MD
--- NOTE | 2019-01-24 14:32 | PROGRESS NOTE ---
DATE: 01/24/2019 INTERVAL HISTORY: The patient reports stable mild left shoulder discomfort and bilateral hip discomfort. No new complaints. No acute events overnight. REVIEW OF SYSTEMS: Twelve point review of systems negative except as per interval history. LABS: WBC 10.6, hemoglobin 8.0, hematocrit 27.5, platelets 408,000. Metabolic panel significant for bicarb 24, glucose 80-227, alkaline phosphatase 132. IMAGING: Left shoulder x-ray with degenerative changes but no acute osseous abnormality. Hip pelvis x-ray with again degenerative changes but no fracture, dislocation, or other acute process. VITALS: T-max 98.7 degrees, pulse 70, respirations 16, blood pressure 147/68, O2 saturation 100% on room air. PHYSICAL EXAMINATION: General: No acute distress. Vitals: As above. HEENT: Normocephalic, atraumatic. Moist mucous membranes. No cervical adenopathy. Cardiovascular: Regular rate and rhythm. No murmurs, rubs, or gallops. Pulmonary: Clear to auscultation bilaterally. No wheezing, rales, or rhonchi. Abdomen: Soft, nontender, nondistended. Bowel sounds positive. Extremities: Peripheral pulses intact. No clubbing or cyanosis. Significant crepitus on motion of the left shoulder, but little pain. Mild muscular tenderness of bilateral lumbar back and hips. Neurologic: Cranial nerves grossly intact. Slightly limited range of motion of left shoulder, but no acute neurologic process. Psychiatric: Normal mood and affect. Awake, alert, oriented x3. Skin: No new rashes or lesions identified. ASSESSMENT AND PLAN: 1. Left shoulder septic arthritis. Patient with previous washout. Continue to finish 6 weeks of IV antibiotics. Subsequently had bump in white count prompting evaluation for repeat infection. Has had minimal drainage from that shoulder, but no warmth or erythema. The joint actually looks pretty good. Infectious Disease and Orthopedics following. Cultures pending. On antibiotics with vancomycin and aztreonam as per ID. Will see what they end up deciding about her shoulder. 2. Bilateral hip pain. Patient with a trip and fall a few days ago. No erythema or warmth of either hip. X-rays show extensive arthritis, but no fracture. Suspect bruise or and/or muscle strain. The patient does also describe some radicular symptoms from the right buttock down the leg, which is likely sciatica, but states that this is not where most of her pain comes from. 3. Hypertension. The patient is hypertensive by history but has borderline hypotension on initial evaluation. Improved with IV fluids and now with [id number] hypertension. If blood pressure remains high, we will likely restart home NED but will continue holding for now. Continue to monitor. Reportedly had some orthostatic dizziness just after admission but did not have positive orthostatics when checked after admission. 4. Diabetes. Overall reasonable control on current therapy. Monitor. 5. Situational anxiety and depression, stable. Continue home medications. 6. Hyperlipidemia. Will restart home statin. 7. CKD 2, stable. 8. CAD. Hold home aspirin and Plavix until we are sure orthopedic surgeon will not have to perform any intervention. Once that determination has been made, we will restart aspirin and Plavix.
[2019-01-24] MEDS: VANCOMYCIN 1,500 MG in NS 250 ML IV SCH (16:21)
[2019-01-24] MEDS: NEURONTIN PO SCH (20:48)
[2019-01-24] MEDS: LIPITOR PO SCH (20:48)
[2019-01-25] MEDS: NORCO-10 PO PRN ×4 (01:24→20:08)
[2019-01-25] MEDS: HUMALOG SUBQ SCH ×4 (07:33→22:00)
[2019-01-25] MEDS: ZOLOFT PO SCH (08:34)
[2019-01-25] MEDS: NEURONTIN PO SCH ×2 (08:35→22:00)
[2019-01-25] MEDS: AZACTAM 2 GM in NS 100 ML IV SCH ×4 (08:35→22:44)
[2019-01-25] MEDS: NS 1,000 ML IV SCH ×2 (11:29→14:01)
--- NOTE | 2019-01-25 15:32 | PROGRESS NOTE ---
DATE: 01/25/2019 INTERVAL HISTORY: The patient reports slowly improving hip pain. Minimal left shoulder pain. No new complaints. States she is feeling well. Called this morning, blood cultures reportedly growing gram-positive cocci, has not been put into the computer yet. The patient has been afebrile and initial set of blood cultures were negative but we are awaiting finalization of culture. REVIEW OF SYSTEMS: Twelve point review of systems negative except as per interval history. LABS: Glucose 144 to 252. VITALS: T-max 98.0 degrees, pulse 71, respirations 20, blood pressure 141/66, O2 saturation 100% on room air. PHYSICAL EXAMINATION: General: No acute distress. Vitals: As above. HEENT: Normocephalic, atraumatic. Moist mucous membranes. No cervical adenopathy. Cardiovascular: Regular rate and rhythm. No murmurs, rubs, or gallops. Pulmonary: Clear to auscultation bilaterally. No wheezing or rhonchi. Abdomen: Nontender, nondistended. Bowel sounds positive. Extremities: Peripheral pulses intact. No clubbing or cyanosis. Mild muscular tenderness of bilateral lower back and hips, slightly improved. Neurologic: Cranial nerves grossly intact. No acute deficit. Psychiatric: Normal mood and affect. Awake, alert, oriented x3. Skin: No new rashes or lesions identified. ASSESSMENT AND PLAN: 1. Left shoulder septic arthritis. Patient with previous washout. She essentially finished 6 weeks of IV antibiotics. Subsequent had bump in white count, prompting evaluation for repeat infection. Has had minimal drainage from the shoulder, but no warmth or erythema. Cultures from the joint are negative but preliminarily positive blood cultures with gram-positive cocci. On antibiotics with vancomycin and aztreonam. Repeating blood cultures. Awaiting finalization of blood cultures so we can see if that is a contaminant or not. Infectious Disease following. Awaiting further recommendations from them. 2. Bilateral hip pain. Patient with a trip and fall a few days ago. No erythema, edema, warmth. X-ray showed extensive arthritis, but no fractures. Likely bruise or muscle strain. Improving slowly. 3. Hypertension. Blood pressure slightly low initially. Home blood pressure medications were held. Has been consistently mildly elevated since then, though, so we will likely restart home NED inhibitor in the morning. 4. Diabetes. Occasional mild elevations but overall acceptable control. Continue to monitor. 5. Situational anxiety and depression, stable. Continue home medications. 6. Hyperlipidemia. Continue home statin. 7. CKD 2 essentially stable. 8. CAD and coronary artery disease. Holding aspirin and Plavix until we are sure no further intervention will be necessary.
[2019-01-25] MEDS: VANCOMYCIN 1,500 MG in NS 250 ML IV SCH (17:19)
[2019-01-25] MEDS: LIPITOR PO SCH (22:00)
[2019-01-26] MEDS: NORCO-10 PO PRN ×5 (00:22→21:00)
[2019-01-26] MEDS: NS 1,000 ML IV SCH (06:41)
[2019-01-26] MEDS: HUMALOG SUBQ SCH ×5 (06:49→21:30)
[2019-01-26] MEDS: NEURONTIN PO SCH ×2 (10:27→20:39)
[2019-01-26] MEDS: ZOLOFT PO SCH (10:27)
--- NOTE | 2019-01-26 11:01 | INFECTIOUS DISEASE PROGRESS NO ---
DATE: 01/26/2019 PRESENT ILLNESS: The patient was being treated at home for an oxacillin-sensitive Staph aureus left shoulder septic arthritis. She was readmitted to the hospital because of a leukocytosis. Now, 1 of 2 blood cultures that were drawn on admission is growing Staphylococcus aureus. It is uncertain whether it is an oxacillin-sensitive Staph aureus or a methicillin-resistant Staph aureus. In any event, I think that most likely, the patient's leukocytosis and positive blood culture are caused by an infection of the patient's PICC in her right arm, and not from the left shoulder. MEDICATIONS: The patient is currently on a combination of vancomycin and aztreonam. PHYSICAL EXAMINATION: Vital Signs: Temperature is 98.6 degrees, pulse 66, respirations 18, blood pressure 133/56. General: This is an obese, chronically ill-appearing, middle-aged female. She is complaining of having pain in her back, which started when she fell. HEENT: She can hear my spoken words and see near objects. She does not have any white coating of her tongue. Neck: No pain with movement of the neck. Lungs: Clear to auscultation. Cardiovascular: Heart rate is regular. Abdomen: Soft and nontender. Extremities: The patient's left shoulder incision is intact. There is no drainage. There is no erythema, and movement of the left shoulder does not cause the patient to have exquisite pain. The patient does have a PICC in the right arm. That site also is not erythematous. It is not draining. The patient's left shoulder incision is not erythematous or swollen. The whole shoulder is not swollen, and movement of the shoulder is not painful. There is no drainage coming from the incision. It appears to be healed up well. Neurologic: The patient is alert. She can move her extremities. There is no tremor. IMAGING AND LABORATORY DATA: There was no new radiographic study today. There is not a new CBC or BMP for today. The patient has 1 of 2 blood cultures drawn on 01/23/2019. It is growing a gram-positive coccus that is Staph aureus. It is not certain whether this is an oxacillin- sensitive Staph aureus or a methicillin-resistant Staph aureus. Repeat blood cultures were drawn yesterday, and there are no results at this time. The patient's culture from her shoulder during this admission showed no growth. ASSESSMENT AND PLAN: The patient has an oxacillin-sensitive Staphylococcus aureus left shoulder septic arthritis. She has had 5 weeks of treatment, and she will require 1 more week. The patient also has a Staphylococcus aureus bacteremia, which I think most likely originated from the patient's peripherally-inserted central catheter rather than her shoulder. My plan is to continue vancomycin, but discontinue aztreonam and remove the patient's peripherally-inserted central catheter. COMORBIDITIES: She has diabetes mellitus and osteoarthritis. cc: Wil Gandhi MD
--- NOTE | 2019-01-26 15:50 | PROGRESS NOTE ---
DATE: 01/26/2019 INTERVAL HISTORY: The patient is complaining only of stable, reasonably well controlled low back pain. No other acute events overnight. States she is feeling well otherwise. No other acute events. REVIEW OF SYSTEMS: Twelve point review of systems negative except as per interval history. LABS: Glucose 144 to 252. VITALS: T-max 98.6 degrees, pulse 77, respirations 18, blood pressure 154/69, O2 saturation 99% on room air. PHYSICAL EXAMINATION: General: No acute distress. Vitals: As above. HEENT: Normocephalic, atraumatic. Moist mucous membranes, no cervical adenopathy. Cardiovascular: Regular rate and rhythm. No murmurs, rubs, gallops. Pulmonary: Clear to auscultation bilaterally. No wheezing, rales, or rhonchi. Abdomen: Soft, nontender, nondistended. Bowel sounds positive. Extremities: Peripheral pulses intact. No clubbing or cyanosis. Neurologic: Cranial nerves grossly intact. No acute deficits identified. Psychiatric: Normal mood and affect. Awake, alert, oriented x3. Skin: No new rashes or lesions seen. ASSESSMENT AND PLAN: 1. Possible left shoulder septic arthritis. The patient with previous white washout. She finished 5 out of 6 weeks of IV antibiotics. Subsequently had a bump in white count prompting evaluation for repeat infection. Minimal drainage from shoulder, and cultures have been negative. Discussed with Infectious Disease. They feel that worsening infection of the shoulder is less likely given blood cultures as below. He was placed initially on vancomycin and aztreonam, now on vancomycin alone. 2. Positive blood cultures. Patient's initial blood cultures 1 of 2 positive for gram positive cocci. Awaiting finalization, but concern is for line infection. On vancomycin as above. Repeat blood cultures drawn and results pending. Infectious Disease following as above. Removing current PICC. We will obtain peripheral IV, give a line holiday prior to obtaining new PICC. 3. Bilateral hip pain. Patient with trip and fall a few days prior to admission. No erythema, edema, warmth. X-ray showed extensive arthritis but no fractures. Likely bruise, muscle strain. Continues to improve slowly. 4. Hypertension. Blood pressure was slightly low initially. Home blood pressure medications were held. Has been elevated since then. We are restarting home NED inhibitor and will monitor. 5. Diabetes. Acceptable control overall. Continue to monitor. 6. Situational anxiety and depression, stable. Continue home medications. 7. Hyperlipidemia. Continue home statin. 8. Chronic kidney disease 2. Kidney function stable on last check. 9. Coronary artery disease. Holding home aspirin and Plavix, pending new line. We will restart once new line in place.
[2019-01-26] MEDS: VANCOMYCIN 1,500 MG in NS 250 ML IV SCH (17:36)
[2019-01-26] MEDS: PRINIVIL PO SCH (19:59)
[2019-01-26] MEDS: LIPITOR PO SCH (20:39)
[2019-01-27] MEDS: NORCO-10 PO PRN ×4 (00:50→19:24)
[2019-01-27] MEDS: HUMALOG SUBQ SCH ×4 (07:04→22:01)
[2019-01-27] MEDS: PRINIVIL PO SCH (09:40)
[2019-01-27] MEDS: NEURONTIN PO SCH ×2 (09:50→22:01)
[2019-01-27] MEDS: ZOLOFT PO SCH (09:50)
--- NOTE | 2019-01-27 15:21 | PROGRESS NOTE ---
DATE: 01/27/2019 INTERVAL HISTORY: The patient with no new complaints. No acute events overnight aside from most recent blood cultures drawn on the now positive for gram-positive cocci. REVIEW OF SYSTEMS: Twelve point review of systems negative except as per interval history. LABS: Glucose 175 to 250. VITALS: T-max 99.6 degrees, pulse 72, blood pressure 113/46, O2 saturation 98% on room. PHYSICAL EXAMINATION: General: No acute distress. Vitals: As above. HEENT: Normocephalic, atraumatic. Moist mucous membranes. No cervical adenopathy. Cardiovascular: Regular rate and rhythm. No murmurs, rubs, or gallops. Pulmonary: Clear to auscultation bilaterally. No wheezing, rales, or rhonchi. Abdomen: Soft, nontender, nondistended. Bowel sounds positive. Extremities: Peripheral pulses intact. No clubbing or cyanosis. Neurologic: Cranial nerves grossly intact. No acute deficits identified. Psychiatric: Normal mood and affect. Awake, alert, and oriented x3. Skin: No new rashes or lesions seen. ASSESSMENT AND PLAN: 1. Possible left shoulder septic arthritis. Patient with previous open washout. The patient had finished 5 of 6 weeks of intravenous antibiotics prior to admission. Subsequently had a bump in white count, prompting evaluation for repeat infection. Minimal drainage from surgery on the shoulder and cultures have been negative. After discussion with infectious disease, they feel that infection of the shoulder is not the primary issue. 2. Positive blood cultures. Patient's initial blood cultures, one of two positive for gram- positive cocci, now finalized as methicillin-sensitive Staphylococcus aureus. Concerns for line infection. Peripherally inserted central catheter line now out. Repeat cultures on the again positive for gram-positive cocci, which will presumably be the same thing. Those cultures were drawn before removal of the peripherally inserted central catheter so we will draw cultures again tomorrow and see if they remain negative unless infectious disease recommends otherwise. 3. Bilateral hip pain. 4. Patient with trip and fall a few days prior to admission. No erythema, edema, or warmth. X- ray showed extensive arthritis but no fractures. Likely bruise or muscle strain. Continues to improve at a slow pace. 5. Hypertension. Blood pressure slightly low initially at home. Blood pressure medications were held. Subsequently became consistently elevated and restarted home medications with good control since then. 6. Diabetes. Some moderate elevations but acceptable control overall. Continue to monitor. 7. Situational anxiety and depression, stable. Continue home medications. 8. Hyperlipidemia. Continue home statin. 9. Chronic kidney disease 2. Kidney function stable on last check. 10. Coronary artery disease. Restart home aspirin and Plavix once new line in place.
[2019-01-27] MEDS: CUBICIN 600 MG in NS 100 ML IV SCH (16:58)
--- NOTE | 2019-01-27 20:39 | ORTHOPAEDICS PROGRESS NOTE ---
DATE: 01/27/2019 SUBJECTIVE: Court Rodriguez is a 60-year-old female with a septic left shoulder. Her shoulder is doing much better. She has no complaints. Her white count was improved. OBJECTIVE: She is resting well. She can move her arm. She has minimal drainage. IMPRESSION: A healing left arm. PLAN: Today, we will continue treatment per Dr. Gandhi. She will return to see me as needed. I will sign off and be available as needed. cc: Tommie Paniagua MD
--- NOTE | 2019-01-27 22:12 | INFECTIOUS DISEASE PROGRESS NO ---
DATE: 01/27/2019 PRESENT ILLNESS: Ms Rodriguez has been treated for an oxacillin-sensitive Staph aureus left shoulder septic arthritis for the past 6 weeks using vancomycin. There is now a blood culture which is oxacillin sensitive Staph aureus and another repeat blood culture which also has gram-positive cocci so far, which we expect will also be an oxacillin-sensitive Staph aureus. Her PICC line has been removed, and at this point it seems that she has failed treatment with vancomycin so we will stop that at this time. MEDICATIONS: Today is actually the 6 week madai of treatment using vancomycin for Ms Rodriguez. We will stop the vancomycin and start her on daptomycin 600 mg IV daily, which she will need for a total of 6 weeks. PHYSICAL EXAMINATION: Vital Signs: Temperature is 98.8 degrees, pulse rate 72, respiratory rate 16, blood pressure 113/46. O2 saturation is 100% on room air. General: This is a chronically ill-appearing, middle-aged, obese female. She is sitting up in bed, currently in no acute distress. HEENT: Atraumatic, normocephalic. Oral mucous membranes are pink and moist. Conjunctivae are pale. Neck: Supple. Trachea is midline. Cardiovascular: Heart rate and rhythm are regular. Normal sinus rhythm on the monitor. Respiratory: Lung sounds are clear to auscultation bilaterally. No work of breathing is noted. Abdomen: Soft, obese and nontender. Bowel sounds are active. Integumentary: The left shoulder has pink-purple colored discoloration. At this point, there is no drainage, and the shoulder is open to air. Neurologic: She is awake, alert, oriented, and able to ambulate without assistance. LABORATORY AND X-RAY: None available today. ASSESSMENT AND PLAN: Ms Rodriguez has finished 6 weeks of treatment for an oxacillin-sensitive Staph aureus left shoulder septic arthritis. She was rehospitalized due to leukocytosis and unfortunately now has 2 sets of positive blood cultures, so far showing the same oxacillin- sensitive Staph aureus. At this point, we will discontinue vancomycin and start daptomycin 600 mg IV daily which she will need for a total of 6 weeks. After 48 hours of daptomycin, we will repeat her blood cultures. If those are sterile, we will reinsert a PICC and continue daptomycin at home with follow up in our office at 3 weeks and then again in 6 weeks. The patient is on 80 mg of Lipitor at bedtime, which has been put on hold. I discussed with the patient the possible side effects of daptomycin which include muscle aches and pains more than her usual amount, rash or diarrhea and I have explained for her to report these side effects to her nurse. She was told that the Lipitor will be on hold while she is receiving the Daptomycin, due to the increased risk of muscle toxicity with simultaneous administration. She stated understanding, and agreed with the plan. These plans have been discussed with and recommended by Dr. Gandhi. COMORBIDITIES: For Ms. Rodriguez include obesity, diabetes mellitus, and osteoarthritis. Dictated by CRISTI Alberts for Wil Gandhi MD cc: Wil Gandhi MD MTDD
[2019-01-28] MEDS: NORCO-10 PO PRN ×4 (05:17→21:42)
[2019-01-28 06:05] LABS: BASO# 0.05 X1000 (0.0-0.2); BASO% 0.4 % (0.0-0.8); EOS# 0.38 X1000 (0.0-0.7); EOS% 3.3 % (0.0-10.0); HEMATOCRIT 29.1 % (37.0-47.0); HEMOGLOBIN 8.6 g/dL (12.0-16.0); IMM GRAN# 0.08 X1000 (0.0-0.04); IMM GRAN% 0.7 % (0.0-0.5); LYMPH# 2.03 X1000 (1.2-3.4); LYMPH% 17.6 % (20.5-51.1); MCHC 29.6 g/dL (33-37); MCV 81.1 FL (81-99); MONO# 0.65 X1000 (0.11-0.59); MONO% 5.6 % (1.7-9.3); NEUT# 8.37 X1000 (1.4-6.5); NEUT% 72.4 % (42.2-75.2); PLT 477 X1000 (130-400); RBC 3.59 XMIL (4.2-5.4); RDW 14.8 % (11.5-14.5); WBC 11.56 X1000 (4.8-10.8)
[2019-01-28 06:22] LABS: AGAP 13; BUN 15 mg/dL (8-22); CALCIUM 9.7 mg/dL (8.8-10.2); CHLORIDE 102 mmol/L (98-107); COSMO 287; CREATININE 0.9 mg/dL (0.5-0.9); ESTIMATED GFR > 60; GLUCOSE 157 mg/dL (70-104); POTASSIUM 4.2 mmol/L (3.5-5.1); SODIUM 142 mmol/L (136-145); TCO2 27 mmol/L (25-35)
[2019-01-28] MEDS: HUMALOG SUBQ SCH ×4 (06:38→21:42)
[2019-01-28] MEDS: ZOLOFT PO SCH (11:02)
[2019-01-28] MEDS: NEURONTIN PO SCH ×2 (11:02→21:42)
[2019-01-28] MEDS: PRINIVIL PO SCH (11:02)
[2019-01-28] MEDS: ASPIRIN PO SCH (13:16)
[2019-01-28] MEDS: SENOKOT PO SCH ×2 (13:16→21:41)
--- NOTE | 2019-01-28 13:29 | PROGRESS NOTE ---
DATE: 01/28/2019 INTERVAL HISTORY: No acute events overnight. She denies any new complaints. She states she is feeling better. She denies any current dizziness. She is eating okay. She at baseline uses walker. VITAL SIGNS: Temperature 98.4 degrees, pulse 83, respiratory rate 20, and blood pressure 120/60. Her orthostatic vital signs did not have orthostatic hypotension. PHYSICAL EXAMINATION: Obese not in any acute distress. HEENT: Oral cavity is moist. Lungs: Air entry bilaterally equal. No wheeze, rhonchi, or crackles. Cardiovascular: S1, S2 normal. No murmur, rub, or gallop. She does have healed scar of left shoulder arthroscopy. Abdomen: Obese, soft, and nontender. Extremities: No lower extremity edema. LABORATORY: Suggestive of mild leukocytosis, normocytic anemia, and normal platelet count with mild thrombocytosis. She has normal kidney function and hyperglycemia. MICROBIOLOGY: Two sets of repeat blood cultures have been drawn today. IMAGING: No new imaging today. ASSESSMENT AND PLAN: 1. History of left shoulder septic arthritis and abscess, status post irrigation, debridement, lavage and drainage of left shoulder glenohumeral joint with diagnostic arthroscopy on 12/15/2018 and intravenous vancomycin for MSSA in drainage fluid. and now MSSA bacteremia associated with PICC. Continue intravenous daptomycin and follow up repeat blood culture drawn on 01/28. She would need at least 6 weeks of antibiotics. Continue peripheral IV line. In the future, we will consider re insertion of PICC line as a possible source of current MSSA bacteremia could be her left arm PICC line which has already been removed. 2. Dizziness and recurrent falls. The patient at home uses a walker. I will continue lisinopril at a lower dose, and I will also have physical therapy evaluation. Her orthostatic has been within normal limits. I will continue lisinopril at decreased dose to avoid hypotension. 3. History of insulin-dependent diabetes mellitus and peripheral neuropathy. Continue home gabapentin. Start patient on glargine. Continue sliding scale insulin. 4. History of coronary artery disease status post stent in 2014. Resume patient's aspirin. I am holding clopidogrel considering expected PICC line insertion in the next 48 to 72 hours. After that, I will resume her clopidogrel as well. 5. Others: Continue sertraline for anxiety. 6. Disposition: Awaiting negative blood cultures. Plan of care discussed with her. Her questions have been answered. cc: MD GIAN Bello
[2019-01-28] MEDS: CUBICIN 600 MG in NS 100 ML IV SCH (18:16)
--- NOTE | 2019-01-28 19:03 | INFECTIOUS DISEASE PROGRESS NO ---
DATE: 01/28/2019 PRESENT ILLNESS: Ms. Rodriguez has an oxacillin-sensitive Staph aureus, left shoulder septic arthritis, and an associated bacteremia. MEDICATIONS: She is receiving daptomycin 600 mg IV daily. She will need 6 weeks from the first day of sterile blood cultures. PHYSICAL EXAMINATION: Vital Signs: Temperature is 98.4 degrees, pulse rate 83, respiratory rate 20, blood pressure 120/60, O2 saturation is 100% on room air. General: This is a chronically ill- appearing, middle-aged female. She is lying in the bed. Currently, in no acute distress. HEENT: Atraumatic, normocephalic. Oral mucous membranes are pink and moist. Conjunctivae are pale. Neck: Supple. Trachea is midline. Respiratory: Lung sounds are clear to auscultation bilaterally. No work of breathing is noted. Cardiovascular: Heart rate is regular. Abdomen: Soft, obese, and nontender. Bowel sounds are active. Integumentary: The left shoulder incision has healed over and has a dry mild eschar which is dry and open to air. Neurologic: She is awake, alert, oriented, and able to move around in the bed independently. LABORATORY AND X-RAY: Today, her white count is 11.56, hemoglobin 8.6, platelet count 477,000. Creatinine is 0.9, estimated GFR is greater than 60. She has 2 separate blood cultures that have grown oxacillin-sensitive Staph aureus. No imaging reports today. ASSESSMENT AND PLAN: Ms. Rodriguez is being treated for an oxacillin-sensitive Staph aureus left shoulder septic arthritis with an associated bacteremia. She has completed and failed vancomycin treatment, so at this point, she is receiving daptomycin IV daily, which we will continue. Once 48 hours of daptomycin have been provided, we will recheck her blood cultures. Those have been put in for tomorrow evening after the 48-hour madai. Once blood cultures are sterile, we should be able to insert a PICC and send her home with daily daptomycin IV. Orders have been put in the computer to consult [facility] for daptomycin IV daily for 6 weeks. These plans have been discussed with and recommended by Dr. Gandhi. COMORBIDITIES: For Ms. Rodriguez include that she is obese, with diabetes mellitus and osteoarthritis. Dictated by CRISTI Alberts for Wil Gandhi MD cc: Wil Gandhi MD MTDD
[2019-01-28] MEDS ORDERED: LANTUS INSULIN SUBQ SCH (21:00)
[2019-01-28] MEDS: LANTUS INSULIN SUBQ SCH (21:42)
[2019-01-29] MEDS: NORCO-10 PO PRN ×6 (01:35→23:57)
[2019-01-29] MEDS: HUMALOG SUBQ SCH ×3 (07:00→17:11)
[2019-01-29] MEDS ORDERED: PRINIVIL PO SCH (09:00)
[2019-01-29] MEDS: ASPIRIN PO SCH (09:46)
[2019-01-29] MEDS: NEURONTIN PO SCH (09:46)
[2019-01-29] MEDS: ZOLOFT PO SCH (09:46)
[2019-01-29] MEDS: SENOKOT PO SCH (09:46)
--- NOTE | 2019-01-29 12:04 | INFECTIOUS DISEASE PROGRESS NO ---
DATE: 01/29/2019 PRESENT ILLNESS: The patient has an oxacillin sensitive Staph aureus left septic shoulder arthritis with an associated bacteremia. MEDICATIONS: The patient is on daptomycin 600 mg IV daily. PHYSICAL EXAMINATION: Vital Signs: Temperature is 98.3 degrees, pulse 67, respirations 20, blood pressure 112/41. General: This is a ill-appearing middle-aged female. She is in no acute distress. Head, eyes, ears, nose, and throat: She can hear my spoken words and see near objects. She does not have any white patches on her tongue. Neck: No pain with movement of it. Lungs: Clear to auscultation. Cardiovascular: Heart rate is regular. Abdomen: Soft and nontender. Bones, Joints, Muscles: The left shoulder is not swollen or erythematous. It is not tender and it is not draining. Neurologic: The patient is alert. She can move her extremities. There is no tremor. LAB AND X-RAY: There is no lab or x-ray for today. ASSESSMENT AND PLAN: The plan is to discharge the patient tomorrow if her blood cultures remain negative at 48 hours. She will be treated for a total of 6 weeks with daptomycin. I have requested that the patient have an appointment in my office in 3 weeks. I have also ordered a CK for today. If the blood cultures tomorrow are negative and the CK is not elevated, the patient will have a PICC placed. She already has been seen by [facility] and they have made arrangements to supply her antibiotics at home. COMORBIDITIES: Obesity, diabetes mellitus, and osteoarthritis. cc: Wil Gandhi MD
[2019-01-29] MEDS: MIRALAX PO SCH (13:50)
--- NOTE | 2019-01-29 13:50 | PROGRESS NOTE ---
DATE: 01/29/2019 INTERVAL HISTORY: No acute events overnight. She was a little hypotensive with low diastolic blood pressure, and I have added holding parameters of lisinopril. She has not had any bowel movements at the moment. Repeat blood cultures are negative so far. SUBJECTIVE: Patient wants me to write her prescription of opioid pain medication as well as Neurontin at the time of discharge. I discussed with her that I would not be able to write prescriptions more than of 7 days duration by which she should schedule an appointment with her primary care doctor. Currently, patient denies any chest pain or shortness of breath or any abdominal pain. She is complaining of left jaw pain. VITALS: Temperature 98.2 degrees, pulse 73, respiratory rate 18, blood pressure 114/54, and saturating 95% on room air. PHYSICAL EXAMINATION: General: Patient does not appear in any acute distress. HEENT: Oral cavity is moist. Lungs: Air entry bilaterally equal. No wheeze, rhonchi, or crackles. Heart: S1, S2 normal. No murmur or gallop. Extremities: She has healed scar of left shoulder arthroscopy over left anterior chest. Abdomen: Obese, soft, and nontender. Active bowel sounds. Extremities: No lower extremity edema Neurologic: She is alert and oriented x3. LABORATORY: [place] [address], hemoglobin of 8.6, platelet of 477,000. Normal electrolytes. Glucose of 182. MICROBIOLOGY: No new data. The blood cultures so far have been negative. No new imaging. ASSESSMENT AND PLAN: 1. History of left shoulder septic arthritis and abscess status post irrigation, debridement, leverage and drainage of left shoulder joint with diagnostic arthroscopy on 12/15/2018 and intravenous vancomycin course for MSSA in drainage fluid; now developing MSSA bacteremia associated with left PICC line, status post removal of the PICC line. Continue intravenous daptomycin, and follow up repeat blood cultures drawn on 01/28. She would need 6 weeks of antibiotics after first negative blood culture. 2. Dizziness and recurrent falls. The patient at home uses walker. I will continue lisinopril at a lower dose. Physical Therapy evaluation. The jaw pain is likely musculoskeletal. She did not have any evidence of left ear infection or dental abnormality or lymph node or parotitis. 3. History of insulin-dependent diabetes mellitus and peripheral neuropathy. Continue home gabapentin, current glargine dose and sliding scale insulin. 4. History of coronary artery disease status post stent in 2015. Continue patient's aspirin, and resume clopidogrel at the time of discharge. 5. Others: Continue sertraline for anxiety. 6. Disposition: If the blood cultures remains negative, my plan is to discharge her on intravenous daptomycin. Infectious Disease on board. Plan of care discussed with the patient, and her questions have been answered. cc: Christophe Estevez MD
[2019-01-29] MEDS: CUBICIN 600 MG in NS 100 ML IV SCH (17:04)
[2019-01-29] MEDS: LANTUS INSULIN SUBQ SCH (18:40)
[2019-01-30] MEDS: SENOKOT PO SCH ×2 (00:50→08:50)
[2019-01-30] MEDS: HUMALOG SUBQ SCH ×3 (00:50→12:41)
[2019-01-30] MEDS: MIRALAX PO SCH ×2 (00:50→08:50)
[2019-01-30] MEDS: NEURONTIN PO SCH ×2 (00:50→08:50)
[2019-01-30] MEDS: NORCO-10 PO PRN ×3 (04:22→13:20)
[2019-01-30] MEDS: ZOLOFT PO SCH (08:50)
[2019-01-30] MEDS: ASPIRIN PO SCH (08:50)
[2019-01-30] MEDS ORDERED: PRINIVIL PO SCH (09:00)
[2019-01-30 09:07] LABS: PROTIME 15.6 Seconds (11.0-16.0); PTT 30.3 Seconds (22.3-41.8)
[2019-01-30 09:08] LABS: INR 1.22
[2019-01-30] MEDS ORDERED: NS 250 ML ONE (09:39)
[2019-01-30 12:13] VITALS: BP 122/42
[2019-01-30] MEDS: CUBICIN 600 MG in NS 100 ML IV SCH (12:40)
--- NOTE | 2019-01-31 06:41 | DISCHARGE SUMMARY ---
ADMISSION DATE: 01/23/2019 DISCHARGE DATE: 01/30/2019 DISCHARGE DISPOSITION: Home with home antibiotic therapy. DISCHARGE CONDITION: Hemodynamically stable. Her blood pressure is stable. Her antihypertensive medications have been stopped. She is getting a new PICC line. DISCHARGE DIAGNOSES: 1. Recurrent falls. 2. Orthostatic hypotension. 3. MSSA bacteremia associated with previously left shoulder joint abscess, and now with associated PICC line related bloodstream infection. 4. Hyperglycemia with history of insulin-dependent diabetes mellitus. 5. Chronic pain disorder. OTHER DIAGNOSES: 1. Obesity. 2. History of insulin-dependent diabetes mellitus type 2. 3. Essential hypertension. 4. Vertigo and imbalance. 5. Situational anxiety and depression. 6. Sleep apnea. 7. Osteoarthritis. 8. History of coronary artery disease on aspirin and Plavix. DISCHARGE MEDICATIONS: 1. Daptomycin 600 mg IV every 24 hours for 6 weeks. 2. Aspirin 81 mg daily. 3. Plavix 75 mg daily. 4. Sitagliptin 100 mg daily. 5. Insulin glargine 46 units b.i.d. 6. Atorvastatin 80 mg at nighttime. 7. Insulin aspart 20 units subcu with meals. 8. Sertraline 50 mg daily. 9. MiraLAX 17 g b.i.d. 10. Gabapentin 600 mg b.i.d. 11. Tyrone 10 one tablet every 4 hours as needed for pain 15 tablets have been prescribed. DISCHARGE INSTRUCTIONS: Patient is advised to check her blood pressure, and accordingly contact her regular doctor to resume her lisinopril as tolerated. She is advised to take her blood sugars and adjust the dose of insulin accordingly. She is also provided instructions about orthostatic hypertension. VITALS: At the time of discharge, temperature 98.2 degrees, pulse 73, respiratory 16, blood pressure 113/48, and saturating 97% on room air. PHYSICAL EXAMINATION: General: Obese not in any acute distress. Oral cavity is moist. Lungs: Air entry is bilaterally equal. No wheezing, rhonchi or crackles. Heart: S1 and S2 normal. No murmur, rub or gallop. Abdomen: Soft, nontender. Extremity: No lower extremity edema. Neurologic: She is alert and oriented x3. LABORATORY: Labs at discharge, WBC 19007, hemoglobin 8.6, platelets 477,000, and INR of 1.2, PTT 30. Normal electrolytes with BUN of 15, creatinine of 0.9, blood sugar 179. SIGNIFICANT MICROBIOLOGY DURING HOSPITAL ADMISSION: Her blood cultures were growing methicillin sensitive Staphylococcus aureus on 01/23 and 01/25. Repeat blood culture on 01/28 did not have any growth. SIGNIFICANT IMAGING DURING HOSPITAL ADMISSION: Hip/pelvis x-ray performed because of mechanical fall only had degenerative disease. Shoulder x-ray of the left had degenerative changes without any definite evidence of acute osseous abnormality by plain radiograph. HOSPITAL COURSE SUMMARY: Ms. Rodriguez is a 63 year old lady who had history of left shoulder abscess and posterior septic left shoulder joint for which she underwent irrigation and debridement of anterior left shoulder abscess as well as irrigation, lavage, and drainage of left shoulder glenohumeral joint with a diagnostic arthroscopy on 12/13/2018. Her abscess fluid was growing methicillin sensitive Staphylococcus aureus, and she was started on intravenous vancomycin at home by Infectious Disease. However in December, patient kept on having recurrent falls, and had started feeling weak. She also had increasing white cell count so the home care agency had discussed with Infectious Disease doctor, and considering suspected orthostatic hypotension and poor functional status she was advised to come to the hospital. She was found to be orthostatic inside the hospital, and was admitted for intravenous hydration. While inside the hospital, blood cultures were collected, which grew methicillin sensitive Staphylococcus aureus. It was thought that her bacteremia was rather related to presence of PICC line than persistent shoulder abscess as it was cleaned out by surgical procedure previously so her new PICC line was removed, and her intravenous vancomycin was changed to intravenous daptomycin, and blood cultures were collected. The blood cultures returned negative, so repeat PICC line was inserted. Patient will be discharged on intravenous daptomycin for 6 weeks. For her orthostatic hypotension, her lisinopril was held at the time of discharge, and she was advised to follow up orthostatic precautions. We will discuss with the regular doctor in the future to resume her blood pressure medications cautiously. She was also advised to decrease the use of pain medication after discussion with her regular doctor as it may increase the risk of falls. At the time of discharge, detailed discharge instructions were given. More than 30 minutes spent in discharging this patient. All of her questions were answered. cc: Christophe Estevez MD
== END 2019-01-30 13:32 | disposition home or self-care (01) | DRG 315 ==
LOC: SUATTDRO 10:46 → DIRADM 10:46 → 4N 12:20
PROVIDERS: ATTEND Internal Medicine
CPT/HCPCS: 36569; 73030; 73522; 80048; 80053; 80202; 82550; 82948; 85025; 85610; 85730; 87040; 87070; 87077; 87186; 97162; A9270; J0878; J1815; J3370; J7030; J7040; J7050; S0073; XXXXX

== ENCOUNTER 2019-02-03 14:16 | Inpatient (IN) ==
[2019-02-03] MEDS ORDERED: FLEXERIL PO ONE (16:02)
--- NOTE | 2019-02-03 16:08 | PROVIDER DOCUMENTATION ---
HPI-Musculoskeletal Pain/Inj - GENERAL Stated Complaint: MALASIE Time Seen by Provider: 02/03/19 16:00 Source: patient - HX OF PRESENT ILLNESS-MUSKULOSKELTAL Nature of Presenting Problem: 63 YOF PRESENTS WITH C/O R HIP PAIN THAT RADIATES DOWN HER LEG AND INABILITY TO WALK DUE TO PAIN. SHE REPORTS SHE WAS RECENTLY DISCHARGED WITH BACTEREMIA ([facility]) AND WAS HOME WHEN THE PAIN OCCURRED. IT HAS BEEN PRESENT X 24 HRS. SHE REPORTS SHE WAS ABLE TO WALK BY LIMPING WITH HER WALKER BUT THE PAIN HAS GOTTEN WORSE. SHE HAS NOT HAD A JOINT REPLACEMENT IN THE R HIP AND WAS PREVIOUSLY DIAGNOSED WITH SCIATIC PAIN YEARS AGO. SHE IS BEING TREATED WITH IV DAPTOMYCIN AT HOME VIA PICC LINE. SHE DENIES FEVERS, CHILLS, SOB, CP, N/V/D. Quality of Pain: reports: aching, burning Severity in ED: moderate Onset/Duration: 24 hours ago Timing: still present Modifying Factors: improves with: nothing Any recent injury?: No Locality of Occurance: Home Similar Symptoms Previously?: Yes (SCIATIC PAIN, YEARS AGO ) Recently seen or treated by another doctor?: No - HIP/PELVIS PAIN/INJURY Hip Pain Location: reports: hip (R) Pain Radiation: reports: upper legs Context / Method of Injury: denies: unknown, direct blow, fall, felt pop before fall, injury, motor vehicle crash, other Associated Symptoms: reports: denies symptoms - LOWER EXTREMITY PAIN/INJURY Lower Extremities Pain: hip: right (BURNING PAIN, RADIATES DOWN R LEG ) Associated Symptoms: reports: denies symptoms Review of Systems - Adult - REVIEW OF SYSTEMS - ADULT Constitutional: reports: no symptoms reported. denies: see HPI, chills, fever, fatique, night sweats, weight gain, weight loss, other Eyes: reports: no symptoms reported. denies: see HPI, discharge, dry eyes, decreased vision, blurred vision, double vision, eye pain, redness, other Ears, Nose, Mouth & Throat: reports: no symptoms reported. denies: see HPI, ear discharge, ear pain, hearing loss, tinnitus, epistaxis, sinus problem, nose pain, loose teeth, mouth/dental pain, mouth swelling, hoarseness, throat pain, throat swelling, other Cardiovascular: reports: no symptoms reported. denies: see HPI, chest pain, edema, heart murmur, irregular heart rate, orthopnea, palpitations, poor circulation, PND, syncope, other Respiratory: reports: no symptoms reported. denies: see HPI, chronic cough, cough, dyspnea on exertion, excessive sputum production, hemoptysis, pleurisy, shortness of breath, wheezing, other Gastrointestinal: reports: no symptoms reported. denies: see HPI, abdominal pain, hematemesis, constipation, diarrhea, difficulty swallowing, frequent heartburn, nausea, poor appetite, rectal bleeding, vomiting, other Genitourinary: reports: no symptoms reported. denies: see HPI, dysuria, discharge, frequency, flank pain, frequent UTI's, hematuria, hesitency, incontinence, urinary retention, urgency, other Musculoskeletal: reports: see HPI, bone pain. denies: no symptoms reported, back pain, frequent leg cramps, joint pain, joint swelling, muscle aches, muscle weakness, neck pain, other Integumentary: reports: no symptoms reported. denies: see HPI, hives, hair loss, itching, mole changes, nail changes, rash, skin sores/ulcer, skin thickening, other Neurological: reports: no symptoms reported. denies: see HPI, ataxia, dizziness/vertigo, headache/migraines, loss of balance, numbness, paresthesia, seizure, slurred speech, syncope, tremors, other Psychiatric: reports: no symptoms reported. denies: see HPI, anxiety, anti- depressant use, alcohol/drug dependence, depression, emotional problems, insomnia, panic attacks, suicidal thoughts, other Endocrine: reports: no symptoms reported. denies: see HPI, change in skin pigment, excessive sweating, goiter, cold intolerance, heat intolerance, i ncreased hunger, increased thirst, polyuria, other Hematologic/Lymphatic: reports: no symptoms reported. denies: see HPI, blood clots, easy bruising, low blood count, lymphedema, prolonged bleeding, swollen lymph nodes, transfusions, other Allergic/Immunologic: reports: no symptoms reported. denies: see HPI, allergic reactions, allergic rhinitis, asthma, eczema, food allergy, frequent infections, hay fever, hives, positive PPD, urticaria, other Past History - Adult - PAST MEDICAL HISTORY-ADULT Review of Records: reports: Nursing Assessment Review, Social history reviewed & non-contributory. Physical Exam-Injury Related - Physical Exam-Injury Related General Appearance: appears well, alert, no apparent distress Eyes: PERRL/EOMI Head, Ears, Nose, Mouth & Throat: normocephalic/atraumatic, moist mucous membranes Neck: full range of motion, supple Respiratory: chest non-tender, lungs clear, normal breath sounds, no respiratory distress Cardiovascular: normal peripheral pulses, regular rate, rhythm Abdominal Exam: normal bowel sounds, non tender, soft Female Genitalia/Pelvic Exam: deferred Hemoccult Exam: deferred Lymphatic: no adenopathy Back Exam: normal inspection Extremity: negative: normal range of motion (DECREASED ROM 2/2 PAIN), non-tender (TENDERIN R HIP POSTERIOR), normal gait Integumentary: normal color, warm/dry Neurologic: grossly normal Psych/Mental Status: normal mood/affect, oriented x 3 - Glascow Coma Score Best Eye Response ([place]): (4) open spontaneously Best Verbal Response ([place]): (5) oriented Best Motor Response ([place]): (6) obeys commands Progress - PLAN OF CARE/RESULTS Progress/Plan/Lab Results: Vital Signs - 8 hr 02/03/19 16:06 Temperature 98.3 F Pulse Rate 87 Respiratory Rate 18 Blood Pressure 157/70 O2 Sat by Pulse Oximetry 98 Laboratory Results - last 24 hr 02/03/19 02/03/19 16:14 16:14 WBC 15.17 H RBC 4.14 L Hgb 9.8 L Hct 32.6 L MCV 78.7 L MCH 23.7 L MCHC 30.1 L RDW Std Deviation 15.1 H Plt Count 544 H MPV 9.7 Immature Gran % (Auto) 0.6 H Neut % (Auto) 81.7 H Lymph % (Auto) 10.4 L [place] % (Auto) 5.7 Eos % (Auto) 1.3 Baso % (Auto) 0.3 Immature Gran # (Auto) 0.09 H Neut # (Auto) 12.39 H Lymph # (Auto) 1.58 [place] # (Auto) 0.87 H Eos # (Auto) 0.19 Baso # (Auto) 0.05 Sodium 137 Potassium 4.5 Chloride 96 L Carbon Dioxide 27 Anion Gap 14 BUN 15 Creatinine 0.8 Estimated GFR/1.73 m2 > 60 BUN/Creatinine Ratio 19 Glucose 120 H Calculated Osmolality 276 Calcium 9.9 Total Bilirubin 0.29 AST 20 ALT 15 Alkaline Phosphatase 165 H Total Protein 7.8 Albumin 3.2 L Globulin 4.6 Albumin/Globulin Ratio 0.7 Orders Category Date Time Status Ambulate Patient-Not Phys Thx ORDERED Care 02/03/19 17:10 Active CHEST-1 VIEW [RAD] Stat Exams 02/03/19 16:01 Completed XRAY PELVIS W/HIP 2-3VW RT [RAD] Stat Exams 02/03/19 16:01 Completed CBC WITH ELECTRONIC DIFF [HEME] Stat Lab 02/03/19 16:14 Completed COMPREHENSIVE METABOLIC PANEL [CHEM] Stat Lab 02/03/19 16:14 Completed Cyclobenzaprine [Flexeril] Med 02/03/19 16:02 Discontinued 10 mg PO NOW ONE Hydrocodone/APAP 7.5 mg/325 mg [[place]-7.5] Med 02/03/19 17:33 Discontinued 1 each PO NOW ONE Ketorolac [Toradol] Med 02/03/19 18:57 Once 30 mg IV NOW ONE Laboratory Tests 02/03/19 02/03/19 16:14 16:14 WBC 15.17 H RBC 4.14 L Hgb 9.8 L Hct 32.6 L MCV 78.7 L MCH 23.7 L MCHC 30.1 L RDW Std Deviation 15.1 H Plt Count 544 H MPV 9.7 Immature Gran % (Auto) 0.6 H Neut % (Auto) 81.7 H Lymph % (Auto) 10.4 L [place] % (Auto) 5.7 Eos % (Auto) 1.3 Baso % (Auto) 0.3 Immature Gran # (Auto) 0.09 H Neut # (Auto) 12.39 H Lymph # (Auto) 1.58 [place] # (Auto) 0.87 H Eos # (Auto) 0.19 Baso # (Auto) 0.05 Sodium 137 Potassium 4.5 Chloride 96 L Carbon Dioxide 27 Anion Gap 14 BUN 15 Creatinine 0.8 Estimated GFR/1.73 m2 > 60 BUN/Creatinine Ratio 19 Glucose 120 H Calculated Osmolality 276 Calcium 9.9 Total Bilirubin 0.29 AST 20 ALT 15 Alkaline Phosphatase 165 H Total Protein 7.8 Albumin 3.2 L Globulin 4.6 Albumin/Globulin Ratio 0.7 After trying to discharge the patient, she reports she cannot stand up and that she lives alone. She is tearful and wants answers. I told her I would talk to the hospitilist but not to expect admission. Result Diagrams: 02/03/19 16:14 02/03/19 16:14 - XRAY 1 XRAY: Right XRAY Study: Hip Impression: See EMR Report (EXAM: XRAY PELVIS W/HIP 2-3VW RT 02/03/2019 HISTORY: PAIN TECHNIQUE: AP pelvis and right hip three views COMMENT: There is no evidence of fracture or dislocation. The hip joint spaces are well-maintained. There is vascular calcifications. There are some enthesopathic calcifications in the iliac crest and greater trochanter. IMPRESSION: No evidence of acute bony disease. Electronically signed by Pj Mosqueda 02/03/2019 4:33 PM 02/03/19 1633) 2 XRAY Study: Chest Impression: See EMR Report (EXAM: CHEST-1 VIEW 02/03/2019 HISTORY: LINE PLACEMENT, PICC FROM HOME TECHNIQUE: AP supine chest at 1625 COMMENT: There is a left-sided PICC line with its tip in the superior vena cava. The inspiration is somewhat suboptimal. There is a granuloma in the lingula. There are no previous studies available for comparison. IMPRESSION: PICC line in the superior vena cava. Electronically signed by Pj Mosqueda 02/03/2019 4:33 PM) Departure - Departure Date of Disposition Decision: 02/03/19 Time of Disposition Decision: 18:57 DIAGNOSIS: Sciatic leg pain Back pain Qualifiers: Back pain location: low back pain Chronicity: acute Back pain laterality: unspecified Sciatica presence: with sciatica Sciatica laterality: sciatica of right side Qualified Code(s): M54.41 - Lumbago with sciatica, right side Disposition: ADMITTED INPATIENT 09 Certified Medical Emergency: Emergent Condition: Stable Additional Freetext Instructions: ED Follow Up Instructions: You have been treated by a care provider in the Emergency Department. These instructions are being provided to you so you can have an understanding of how to care for yourself upon discharge. Upon discharge from the Emergency Department, you are responsible for making arrangements for follow-up care by a physician of your choice. Take all prescribed medications as directed. Return to the Emergency Department immediately for any new or worsening symptoms. You may call the Physician Referral phone number at [phone] to obtain a list of Physicians who are taking new patients. Referrals and Follow-Ups: Wil aGndhi MD [Primary Care Provider] - Discharge Education: Radicular Pain, Sciatica - Critical Care Note This patient required my direct & personal management of CC.: No Attestation - Physician/ ESTEBAN Attestation Patient care was provided by Advanced Practice Provider:: Yes Advanced Practice Provider:: Triny Alexander Advanced Practice Provider documentation review:: The Mid-level provider documentation, treatment plan and medical decision making was reviewed by the physician who agrees with all treatment and medical decision making by the MLP. The physician spent face to face time with patient:: No Advanced Practice Provider documentation review:: Supervising physician onsite and consulted in the evaluation and care of this patient. The physician did not have a face to face encounter with the patient. - Physician/ ESTEBAN Attestation #2 Shift Change Time: 19:00 Patient care was provided by Advanced Practice Provider:: Yes Advanced Practice Provider:: Kimberly Holt The physician spent face to face time with patient:: No Advanced Practice Provider documentation review:: Supervising physician onsite and consulted in the evaluation and care of this patient. The physician did not have a face to face encounter with the patient.
[2019-02-03 16:25] LABS: BASO# 0.05 X1000 (0.0-0.2); BASO% 0.3 % (0.0-0.8); EOS# 0.19 X1000 (0.0-0.7); EOS% 1.3 % (0.0-10.0); HEMATOCRIT 32.6 % (37.0-47.0); HEMOGLOBIN 9.8 g/dL (12.0-16.0); IMM GRAN# 0.09 X1000 (0.0-0.04); IMM GRAN% 0.6 % (0.0-0.5); LYMPH# 1.58 X1000 (1.2-3.4); LYMPH% 10.4 % (20.5-51.1); MCH 23.7 PG (27-31); MCHC 30.1 g/dL (33-37); MCV 78.7 FL (81-99); MONO# 0.87 X1000 (0.11-0.59); MONO% 5.7 % (1.7-9.3); MPV 9.7 FL (7.4-10.4); NEUT# 12.39 X1000 (1.4-6.5); NEUT% 81.7 % (42.2-75.2); PLT 544 X1000 (130-400); RBC 4.14 XMIL (4.2-5.4); RDW 15.1 % (11.5-14.5); WBC 15.17 X1000 (4.8-10.8)
--- NOTE | 2019-02-03 16:35 | Diag Imaging Result Doc PS360 ---
EXAM: XRAY PELVIS W/HIP 2-3VW RT 02/03/2019 HISTORY: PAIN TECHNIQUE: AP pelvis and right hip three views COMMENT: There is no evidence of fracture or dislocation. The hip joint spaces are well-maintained. There is vascular calcifications. There are some enthesopathic calcifications in the iliac crest and greater trochanter. IMPRESSION: No evidence of acute bony disease. Electronically signed by Pj Mosqueda 02/03/2019 4:33 PM
--- NOTE | 2019-02-03 16:36 | Diag Imaging Result Doc PS360 ---
EXAM: CHEST-1 VIEW 02/03/2019 HISTORY: LINE PLACEMENT, PICC FROM HOME TECHNIQUE: AP supine chest at 1625 COMMENT: There is a left-sided PICC line with its tip in the superior vena cava. The inspiration is somewhat suboptimal. There is a granuloma in the lingula. There are no previous studies available for comparison. IMPRESSION: PICC line in the superior vena cava. Electronically signed by Pj Mosqueda 02/03/2019 4:33 PM
[2019-02-03 17:02] LABS: AGAP 14; ALB/GLOB RATIO 0.7; ALBUMIN 3.2 g/dL (3.5-5.0); ALKALINE PHOSPHATASE 165 U/L (32-104); BUN 15 mg/dL (8-22); CALCIUM 9.9 mg/dL (8.8-10.2); CHLORIDE 96 mmol/L (98-107); COSMO 276; CREATININE 0.8 mg/dL (0.5-0.9); ESTIMATED GFR > 60; GLUCOSE 120 mg/dL (70-104); GOT 20 U/L (10-30); GPT 15 U/L (10-36); POTASSIUM 4.5 mmol/L (3.5-5.1); SODIUM 137 mmol/L (136-145); TCO2 27 mmol/L (25-35); TOTAL BILIRUBIN 0.29 mg/dL (0.20-1.00); TOTAL PROTEIN 7.8 g/dL (6.3-8.3)
[2019-02-03] MEDS ORDERED: NORCO-7.5 PO ONE (17:33)
[2019-02-03] MEDS ORDERED: TORADOL IV ONE (18:57)
[2019-02-03] MEDS ORDERED: NEURONTIN PO ONE (19:50)
--- NOTE | 2019-02-03 22:06 | HISTORY AND PHYSICAL ---
PRIMARY CARE PHYSICIAN: Dr. Reese Iglesias. CHIEF COMPLAINT: Right hip/back pain for 4 days. HISTORY OF PRESENTING ILLNESS: A 63-year-old female with a history of diabetes mellitus type 2, hypertension, sleep apnea, coronary disease and left shoulder abscess is currently on antibiotics who had presented to the emergency department with 4 days history of having right back and hip pain. The patient states that it was excruciating and nothing was relieving the pain. She states that she could not put any weight on it and she lives alone. She was evaluated in the emergency department. Due to her persistent pain it was thought that we will place her for observation, further evaluation management. At the time of my examination she had denied any headache, fever, chills, nausea, vomiting, diarrhea, hemoptysis, melena, but complained of right hip/back pain. PAST MEDICAL HISTORY: Left shoulder abscess currently on antibiotics, diabetes mellitus 2, GERD, hypertension, sleep apnea, coronary artery disease. PAST SURGICAL HISTORY: Coronary stent, bilateral feet surgery, back surgery, right shoulder surgery, left shoulder I and D, right carpal tunnel release. ALLERGIES: Penicillin. CURRENT MEDICATIONS: Aspirin 81 mg p.o. daily, atorvastatin 80 mg p.o. at bedtime, Plavix 75 mg p.o. daily, gabapentin 600 mg p.o. b.i.d., NovoLog 20 units subcu t.i.d., Lantus 46 subcu b.i.d., sertraline 50 mg p.o. daily, Januvia 100 mg p.o. daily. SOCIAL HISTORY: No history of smoking, alcohol or illicit drug use. FAMILY HISTORY: Positive for coronary disease father. REVIEW OF SYSTEMS: Fourteen point review of systems is as in HPI. Other systems negative. PHYSICAL EXAMINATION: GENERAL: Cooperative, friendly obese female. She is in mild to moderate pain in the right hip region. VITAL SIGNS: Temperature 98.3 degrees, pulse 87, respiration 18, blood pressure 157/70. HEENT: Atraumatic, normocephalic. Extraocular movements intact. PERRLA. NECK: No masses. CHEST: Clear to auscultation. CARDIOVASCULAR: Regular rate and rhythm. ABDOMEN: Soft. Positive bowel sounds. EXTREMITIES: No edema. BACK: There is lumbar and right hip region tenderness. : No bladder distention. SKIN: Warm. LABORATORIES AND STUDIES: WBC 15.17, hemoglobin 9.8, hematocrit 32.6, platelets 544,000. Sodium 137, potassium 4.5, chloride 96, CO2 27, BUN is 15, creatinine 0.8, glucose 120. Hip and pelvic x- rays, no evidence of any acute bony disease. Chest x-ray shows PICC line in superior vena cava. ASSESSMENT: 63-year-old female with a history of left shoulder abscess, diabetes mellitus type 2, gastroesophageal reflux disease, hypertension and coronary disease who had presented to emergency department with 4 days history of worsening right back and hip region pain. She was evaluated in the emergency department and due to presenting persisting symptoms it was thought that will place in for observation for further evaluation and management. 1. Right hip/back region pain suspected sciatica. 2. Diabetes mellitus type 2. 3. Hypertension. 4. Left shoulder abscess currently on antibiotics. PLAN: 1. We will admit patient to medical floor with telemetry. 2. Continue supportive care with adequate pain control. 3. We will monitor blood glucose and put patient on sliding scale insulin regimen. 4. Monitor blood pressure. Resume antihypertensive agent. 5. We will continue with patient's antibiotics for left shoulder abscess. 6. Put patient on DVT prophylaxis with SCDs. 7. We will continue to follow and reassess. Make further recommendation based on patient's clinical course. cc: Kwame Bernal MD
[2019-02-04] MEDS: FLEXERIL PO SCH ×3 (01:04→20:38)
[2019-02-04] MEDS: NS 1,000 ML IV SCH ×3 (01:04→20:37)
[2019-02-04] MEDS: HUMULIN R SUBQ SCH ×5 (01:04→20:39)
[2019-02-04] MEDS: MOTRIN PO PRN (01:04)
[2019-02-04 07:20] LABS: HEMATOCRIT 28.9 % (37.0-47.0); HEMOGLOBIN 8.5 g/dL (12.0-16.0); MCH 23.3 PG (27-31); MCHC 29.4 g/dL (33-37); MCV 79.2 FL (81-99); RBC 3.65 XMIL (4.2-5.4); RDW 15.1 % (11.5-14.5); WBC 10.45 X1000 (4.8-10.8)
[2019-02-04 07:21] LABS: BASO# 0.04 X1000 (0.0-0.2); BASO% 0.4 % (0.0-0.8); EOS# 0.25 X1000 (0.0-0.7); EOS% 2.4 % (0.0-10.0); IMM GRAN# 0.04 X1000 (0.0-0.04); IMM GRAN% 0.4 % (0.0-0.5); LYMPH# 1.75 X1000 (1.2-3.4); LYMPH% 16.7 % (20.5-51.1); MONO# 0.81 X1000 (0.11-0.59); MONO% 7.8 % (1.7-9.3); MPV 9.9 FL (7.4-10.4); NEUT# 7.56 X1000 (1.4-6.5); NEUT% 72.3 % (42.2-75.2); PLT 395 X1000 (130-400)
[2019-02-04 07:50] LABS: AGAP 13; BUN 21 mg/dL (8-22); CALCIUM 9.1 mg/dL (8.8-10.2); CHLORIDE 101 mmol/L (98-107); COSMO 286; CREATININE 0.9 mg/dL (0.5-0.9); ESTIMATED GFR > 60; GLUCOSE 124 mg/dL (70-104); POTASSIUM 4.2 mmol/L (3.5-5.1); SODIUM 141 mmol/L (136-145); TCO2 27 mmol/L (25-35)
[2019-02-04] MEDS ORDERED: MIRALAX PO PRN (09:41)
[2019-02-04] MEDS: ASPIRIN EC PO SCH (12:35)
[2019-02-04] MEDS: PLAVIX PO SCH (12:35)
[2019-02-04] MEDS: NEURONTIN PO SCH ×2 (12:35→20:38)
[2019-02-04] MEDS: ZOLOFT PO SCH (12:35)
[2019-02-04] MEDS: HUMALOG SUBQ SCH ×2 (12:36→17:48)
[2019-02-04] MEDS: VITAMIN D PO SCH (14:19)
[2019-02-04] MEDS: CUBICIN 600 MG in NS 100 ML IV SCH (17:48)
[2019-02-04] MEDS: NORCO-10 PO PRN (17:58)
--- NOTE | 2019-02-04 19:10 | PROGRESS NOTE ---
DATE: 02/04/2019 SUBJECTIVE: The patient complains of a radiating pain going down her right leg as well as hip pain. OBJECTIVE: Vital Signs: Temperature 98.7 degrees, blood pressure 113/38, heart rate 78, respirations 18, O2 saturation is 100% on room air. General: This is a chronically ill- appearing, elderly female, lying in bed in no acute distress. Heart: S1, S2 normal. Regular rate and rhythm. Lungs: Clear to auscultation bilaterally. Abdomen: Positive bowel sounds. Soft, nontender, nondistended. Extremities: No edema, no cyanosis. Neurologic: The patient is alert and oriented x4. LABORATORY: White blood cell count 10, hemoglobin 8.5, hematocrit 28, platelets 395,000. Sodium 141, potassium 4.2, chloride 101, CO2 of 27, BUN 21, creatinine 0.9, glucose 124. CRP 124. Vitamin D 25. ASSESSMENT AND PLAN: 1. Sciatica versus lumbar radiculopathy. We will order an MRI of the lumbar spine to further assess the patient's complaints of pain. We will also consult with Physical Therapy. 2. Septic arthritis of the left shoulder secondary to oxacillin-sensitive Staph aureus. Continue on daptomycin. 3. Obesity. Aware. 4. Diabetes mellitus type 2. Continue on sliding scale and Lantus. 5. Vitamin D deficiency. We will start the patient on vitamin D replacement. 6. Deep vein thrombosis prophylaxis. Will start the patient on Lovenox. cc: Karina Hua MD
[2019-02-04] MEDS: LANTUS INSULIN SUBQ SCH (20:46)
[2019-02-04] MEDS ORDERED: LOVENOX SUBQ SCH (21:00)
[2019-02-05] MEDS: NORCO-10 PO PRN ×3 (01:25→19:02)
[2019-02-05] MEDS: HUMULIN R SUBQ SCH ×5 (06:28→20:35)
[2019-02-05] MEDS: ZOLOFT PO SCH (08:01)
[2019-02-05] MEDS: ASPIRIN EC PO SCH (08:01)
[2019-02-05] MEDS: JANUVIA PO SCH (08:01)
[2019-02-05] MEDS: LANTUS INSULIN SUBQ SCH ×2 (08:01→20:24)
[2019-02-05] MEDS: VITAMIN D PO SCH (08:01)
[2019-02-05] MEDS: NEURONTIN PO SCH ×2 (08:01→20:24)
[2019-02-05] MEDS: PLAVIX PO SCH (08:01)
[2019-02-05] MEDS: HUMALOG SUBQ SCH ×3 (08:01→16:50)
[2019-02-05] MEDS: FLEXERIL PO SCH ×2 (08:01→20:24)
[2019-02-05 08:06] LABS: HEMATOCRIT 27.6 % (37.0-47.0); HEMOGLOBIN 8.1 g/dL (12.0-16.0); MCH 23.5 PG (27-31); MCHC 29.3 g/dL (33-37); MCV 80.2 FL (81-99); MPV 9.8 FL (7.4-10.4); RBC 3.44 XMIL (4.2-5.4); RDW 15.2 % (11.5-14.5); WBC 9.55 X1000 (4.8-10.8)
[2019-02-05 08:30] LABS: CALCIUM 8.8 mg/dL (8.8-10.2)
[2019-02-05] MEDS ORDERED: SOLU-MEDROL IV ONE (09:08)
--- NOTE | 2019-02-05 12:58 | Diag Imaging Result Doc PS360 ---
EXAM: MRI LUMBAR SPINE W/O CONTRAST INDICATION: lumbar radiculopathy TECHNIQUE: COMPARISON: None. FINDINGS: There is increased fluid signal identified in the L2-3 intervertebral disc space. This can sometimes indicate discitis. However, this is doubtful as there is no increased signal involving the adjacent vertebral body endplates. Please correlate clinically for signs of infection. However, there is increased signal involving the posterior elements on the left at L2-3. This could be due to severe erosive facet arthropathy, however. The signal associated with the conus medullaris is unremarkable. Surrounding soft tissues are essentially unremarkable. There is advanced multilevel degenerative arthropathy throughout the lumbar spine. Segmental analysis is detailed below. L1-2: There is facet arthropathy and a broad-based disc osteophyte complex causing severe central spinal stenosis and moderate to severe foraminal stenosis. L2-3: Signal changes involving the posterior elements on the left are discussed above. There is a broad-based disc osteophyte complex and severe facet arthropathy. This causing severe central spinal stenosis. There is also fairly severe neuroforaminal stenosis. L3-4: There is a broad-based disc osteophyte complex and bilateral facet hypertrophy. This causing severe central spinal stenosis. There is also severe right neuroforaminal stenosis and milder left neuroforaminal stenosis. L4-5: There is severe degenerative facet hypertrophy and a broad-based disc osteophyte complex. This causing very severe central spinal stenosis and severe bilateral neuroforaminal stenosis, worse on the right. L5-S1: There is a very small broad-based disc osteophyte complex. There is no evidence of significant central canal stenosis. There is mild narrowing of the neuroforamina. There are prominent osteophytes extend into the far lateral spaces, larger on the left. These contact the nerve roots in the far lateral spaces. IMPRESSION: 1.Very advanced degenerative arthropathy as detailed above with multilevel severe stenosis. 2.Increased fluid signal associated with the L2-3 intervertebral disc spaces. Please see above discussion. Electronically signed by Dave Berry 02/05/2019 12:55 PM
[2019-02-05] MEDS: CUBICIN 600 MG in NS 100 ML IV SCH (17:57)
--- NOTE | 2019-02-05 18:48 | Diag Imaging Result Doc PS360 ---
EXAM: CT ABD/PELVIS W/PO AND IV CON HISTORY: psoas abscess TECHNIQUE: CT abdomen and pelvis with intravenous contrast COMPARISON: None. FINDINGS: There are several calcified stones within the gallbladder. The gallbladder is contracted. No adjacent inflammation. No focal hepatic abnormality. No splenomegaly. Normal pancreas and adrenal glands. Normal kidneys. No hydronephrosis. Normal aorta. There are scattered colonic diverticula. No bowel obstruction. Normal uterus. Urinary bladder is moderately distended and appears normal. Severe degenerative changes throughout the lumbar spine. Multilevel severe spinal stenosis. Endplate irregularities at L2-3. No well-defined psoas or iliopsoas abscess. Lucent areas within the bones of the mid lumbar spine. IMPRESSION: 1.Prominent degenerative spine changes with multilevel severe spinal stenosis. Possible discitis at L2-3 and multilevel osteomyelitis. 2.Colonic diverticulosis 3.Cholelithiasis This exam was performed using automated exposure control, adjustment of mA or kV according to patient size, and/or use of iterative reconstruction technique. Electronically signed by Jorge Lopez 02/05/2019 6:46 PM
--- NOTE | 2019-02-05 19:21 | INFECTIOUS DISEASE PROGRESS NO ---
DATE: 02/05/2019 PRESENT ILLNESS: Ms. Rodriguez has discitis at L2-3 with probable osteomyelitis at L2, L3 and possibly L4, with a right psoas abscess which may possibly connect with the discitis. She was being treated at home for an oxacillin-sensitive Staphylococcus aureus, left septic shoulder arthritis with an associated bacteremia, when she was admitted this time with severe hip and back pain, with inability to walk. She had already been readmitted once recently due to leukocytosis with continued positive blood cultures after 6 full weeks of treatment with IV vancomycin. MEDICATIONS: She is receiving daptomycin 600 mg IV daily. PHYSICAL EXAMINATION: Vital Signs: Temperature is 97.9 degrees, pulse rate 69, respiratory rate 18, blood pressure 123/62, O2 saturation 100% on room air. General: This is a chronically ill- appearing middle-aged female. She is lying in the bed, currently in no acute distress. HEENT: Atraumatic, normocephalic. Oral mucous membranes are pink and moist. Conjunctivae are pale. Neck: Supple. Trachea is midline. Cardiovascular: Heart rate is regular. Respiratory: Lung sounds are clear to auscultation bilaterally. No work of breathing is noted. Abdomen: Soft, obese, and nontender. Bowel sounds are active. Neurologic: She is awake, alert, and oriented. Able to move upper extremities without limitations. Her lower extremities are weak due to pain. Integumentary: The left shoulder incision has healed. There is some mild eschar, but no erythema, drainage, or edema to the site. There is also a PICC line to the left upper extremity. That site is without edema, erythema, or drainage. LABORATORY AND X-RAY: Today, her white count is 9.55, hemoglobin 8.1, platelet count 429,000. Creatinine is 1, GFR 56. C-reactive protein done yesterday was 124.23. Previously, her blood cultures grew an oxacillin-sensitive Staphylococcus aureus which was also isolated from her left shoulder. Blood cultures have been sterile since 01/28/2019. Lumbar spine MRI shows discitis at L2-L3 with probable osteomyelitis at L2 and L3 and possibly at L4, with a right psoas abscess. ASSESSMENT AND PLAN: Ms. Rodriguez has an L2-L3 discitis with a possible osteomyelitis at L2-L3 and possibly L4. There is also a right psoas abscess. Dr. Gandhi has spoken with Dr. Mosqueda, and it may be that the psoas abscess is connected to the discitis. The plan is for her to go for a CT scan of the abdomen and pelvis this afternoon to get another look at the psoas abscess and discitis. Then she will have a CT guided aspiration of the disk space and/or the psoas abscess tomorrow. We have asked that the fluid be sent for cell count and routine culture. She has been on daptomycin, which we will continue, since it is most likely that the continued oxacillin-sensitive Staph aureus bacteremia is what has seeded the other areas of infection. The patient has an allergy to penicillins, and previously had failed therapy for the bacteremia after 6 weeks of vancomycin. We will check her blood cultures and creatine kinase in the morning. These plans have been discussed with and recommended by Dr. Gandhi. COMORBIDITIES: Include multiple hospitalizations with recent left shoulder abscess, bacteremia, diabetes mellitus, gastroesophageal reflux disease, coronary artery disease, and sleep apnea. Dictated by CRISTI Alberts for Wil Gandhi MD cc: Wil Gandhi MD MTDFatemeh
--- NOTE | 2019-02-05 19:27 | PROGRESS NOTE ---
DATE: 02/05/2019 SUBJECTIVE: The patient complains of hip pain and pain radiating down her right leg. OBJECTIVE: Vital Signs: Temperature 98.2 degrees, blood pressure 125/48, heart rate 79, respirations 20, O2 saturation 97% on room air. General: This is a morbidly obese female lying in bed in no acute distress. Heart: S1, S2 normal. Regular rate and rhythm. Lungs: Equal air entry bilaterally. No wheezing. No rales. No rhonchi. Abdomen: Positive bowel sounds. Soft, nontender, nondistended. Extremities: No edema, no cyanosis. Neurologic: The patient is alert and oriented x4. LABORATORY DATA: Hemoglobin 8.1, hematocrit 27 platelets 429,000. Sodium 143, potassium 5, BUN 20, creatinine 1, glucose 96. IMAGING: MRI of the lumbar spine shows diskitis at L2-L3 with osteomyelitis at L2, L3 and possibly L4. Right psoas abscess. ASSESSMENT AND PLAN: 1. L2-L3 diskitis with osteomyelitis. Antibiotic therapy as per . 2. Psoas abscess. The patient is scheduled to undergo CT-guided drainage tomorrow. Continue with antibiotic therapy. 3. Septic arthritis of the left shoulder secondary to oxacillin sensitive Staphylococcus aureus. Continue on daptomycin. 4. Vitamin D deficiency. Continue with vitamin D replacement. 5. Diabetes mellitus type 2. Continue with sliding scale insulin and Lantus. 6. Obesity. Aware. 7. Anemia. Monitor closely. 8. Deep vein thrombosis prophylaxis. We will hold the Lovenox since the patient is scheduled for a CT-guided biopsy tomorrow. cc: Karina Hua MD MTDD
[2019-02-06] MEDS: NORCO-10 PO PRN ×4 (02:22→17:36)
[2019-02-06] MEDS: HUMULIN R SUBQ SCH ×4 (06:20→21:41)
[2019-02-06 08:26] LABS: HEMATOCRIT 28.7 % (37.0-47.0); HEMOGLOBIN 8.4 g/dL (12.0-16.0); MCH 23.3 PG (27-31); MCHC 29.3 g/dL (33-37); MCV 79.7 FL (81-99); MPV 9.8 FL (7.4-10.4); RBC 3.6 XMIL (4.2-5.4); RDW 15.1 % (11.5-14.5); WBC 13.76 X1000 (4.8-10.8)
[2019-02-06] MEDS: HUMALOG SUBQ SCH ×3 (08:27→17:36)
[2019-02-06 08:47] LABS: AGAP 10; BUN 19 mg/dL (8-22); CALCIUM 9.4 mg/dL (8.8-10.2); CHLORIDE 101 mmol/L (98-107); COSMO 281; CREATININE 0.8 mg/dL (0.5-0.9); ESTIMATED GFR > 60; GLUCOSE 145 mg/dL (70-104); POTASSIUM 4.5 mmol/L (3.5-5.1); SODIUM 138 mmol/L (136-145); TCO2 27 mmol/L (25-35)
[2019-02-06] MEDS: PLAVIX PO SCH (12:53)
[2019-02-06] MEDS: JANUVIA PO SCH (12:53)
[2019-02-06] MEDS: ZOLOFT PO SCH (12:53)
[2019-02-06] MEDS: FLEXERIL PO SCH ×2 (12:53→21:40)
[2019-02-06] MEDS: NEURONTIN PO SCH ×2 (12:53→21:40)
[2019-02-06] MEDS: VITAMIN D PO SCH (12:53)
[2019-02-06] MEDS: LANTUS INSULIN SUBQ SCH ×2 (12:55→21:41)
--- NOTE | 2019-02-06 14:55 | INFECTIOUS DISEASE PROGRESS NO ---
DATE: 02/06/2019 PRESENT ILLNESS: The patient has diskitis with osteomyelitis at lumbar spine 2-3. She does not have a psoas abscess, which earlier was thought to be present. MEDICATIONS: The patient is receiving daptomycin 600 mg IV daily. PHYSICAL EXAMINATION: Vital Signs: Temperature is 97.5 degrees, pulse 65, respirations 20, blood pressure 141/45. General: This is an obese, somewhat chronically ill-appearing, middle-aged female. She is in no acute distress. Head, Eyes, Ears, Nose, and Throat: She can hear my spoken words and see near objects. She does not have a white coating on her tongue. Neck: No pain with movement. Lungs: Clear to auscultation. Cardiovascular: Heart rate is regular. Abdomen: Soft and nontender. Back: There is no bleeding at the site where the patient had her biopsy. Neurologic: The patient is alert. She can move her extremities. There is no tremor. Extremities: The patient's left shoulder incision has healed. LAB AND X-RAY: CT scan today showed diskitis at L2-3. The patient underwent for drainage of the L2-3 disk space and I talked to the radiologist who performed the procedure, namely Dr. Berry, and he said that the aspirate had pus in it. The aspirate has been sent to microbiology for a culture. The patient's CBC shows a white count of 13,760, hemoglobin 8.4, platelet count 464,000. Creatinine is 0.8. The patient's CK was 77. ASSESSMENT AND PLAN: The patient has L2-L3 diskitis with probable osteomyelitis. The plan is to continue daptomycin pending culture results. Also, I have ordered a brace for the patient to wear to immobilize the lumbar spine. I told the patient that when she is lying in bed, she does not need to wear the brace but if she is sitting, standing, or walking, she should wear it. Once I have the identify of the organism, I am going to call one of the neurosurgeons at [place] and present the case to him, and see if he feels that she should be transferred or that she will need surgery which they will do. COMORBIDITIES: The patient has had multiple hospitalization. She did have an abscess in her left shoulder and she became bacteremic. Probably, while she was bacteremic, she seeded her lumbar spine. The patient also has diabetes mellitus, gastroesophageal reflux disease, and sleep apnea. cc: Wil Gandhi MD
--- NOTE | 2019-02-06 15:02 | Diag Imaging Result Doc PS360 ---
EXAM: CT GUIDED BX BACK SFT TIS DEEP INDICATION: L2-3 discitis TECHNIQUE: COMPARISON: 02/05/2019 FINDINGS: Risks, benefits, and alternatives were discussed with the patient and informed consent was obtained. The patient was placed in prone position and was prepped and draped in sterile fashion. Using CT guidance, an 18-gauge core biopsy needle was inserted into the L2-3 intervertebral disc space and approximately 5 mL of thick cloudy yellow fluid was aspirated. It appeared to be purulent. This was sent for laboratory analysis. The needle was then withdrawn and was intact. There were no known complications. IMPRESSION: Technically successful CT-guided aspiration of the L1-2 intervertebral disc space. Electronically signed by Dave Berry 02/06/2019 2:59 PM
[2019-02-06 16:27] LABS: WBC BF 176600 /cumm
[2019-02-06 16:28] LABS: MONOS 3 %; POLYS 97 %
--- NOTE | 2019-02-06 17:03 | PROGRESS NOTE ---
DATE: 02/06/2019 SUBJECTIVE: The patient is resting comfortably in bed. No acute events noted overnight. OBJECTIVE: Vital Signs: Temperature 97.5 degrees, blood pressure 141/45, heart rate 65, respirations 20, O2 saturation is 100% on room air. General: This is an elderly female, lying in bed in no acute distress. Heart: S1, S2 normal. Regular rate and rhythm. Lungs: Clear to auscultation bilaterally. Abdomen: Positive bowel sounds. Soft, obese, nontender, nondistended. Extremities: No edema, no cyanosis. Neurologic: The patient is alert and oriented x4. LABORATORIES: White blood cell count 13, hemoglobin 8.4, hematocrit 28, platelets 464,000. Sodium 138, potassium 4.5, chloride 101, CO2 of 27, BUN 19, creatinine 0.8, glucose 145. ASSESSMENT AND PLAN: 1. L2-L3 diskitis with osteomyelitis. The patient underwent a CT-guided drainage of the intervertebral disk space. We will await the culture results. Continue with antibiotic therapy as directed by Dr. Gandhi. 2. Septic arthritis of the left shoulder secondary to oxacillin-sensitive Staphylococcus aureus. Continue on daptomycin. 3. Insulin-dependent diabetes mellitus. Continue on Lantus and sliding scale insulin. 4. Diabetic neuropathy. Continue on Neurontin. 5. Situational depression. Continue on Zoloft. 6. Constipation. Continue with scheduled laxative therapy. 7. Deep vein thrombosis prophylaxis. The patient's Lovenox will be resumed tomorrow. cc: Karina Hua MD MTDFatemeh
[2019-02-06] MEDS: CUBICIN 600 MG in NS 100 ML IV SCH (17:35)
[2019-02-07] MEDS: NORCO-10 PO PRN ×5 (04:15→22:55)
[2019-02-07] MEDS: HUMULIN R SUBQ SCH ×4 (06:17→21:24)
[2019-02-07] MEDS: PLAVIX PO SCH (08:05)
[2019-02-07] MEDS: ZOLOFT PO SCH (08:05)
[2019-02-07] MEDS: JANUVIA PO SCH (08:05)
[2019-02-07] MEDS: NEURONTIN PO SCH ×2 (08:05→21:24)
[2019-02-07] MEDS: FLEXERIL PO SCH ×2 (08:06→21:24)
[2019-02-07] MEDS: VITAMIN D PO SCH (08:06)
[2019-02-07] MEDS: LOVENOX SUBQ SCH (08:08)
[2019-02-07] MEDS: LANTUS INSULIN SUBQ SCH ×2 (08:08→21:23)
[2019-02-07] MEDS: HUMALOG SUBQ SCH ×3 (08:09→16:41)
[2019-02-07] MEDS: ASPIRIN EC PO SCH (11:55)
--- NOTE | 2019-02-07 16:21 | PROGRESS NOTE ---
DATE: 02/07/2019 SUBJECTIVE: Patient reports feeling fine. Denies any fever or chills. OBJECTIVE: Vital Signs: Temperature 98.2 degrees, heart rate 78, respiratory rate 16, blood pressure 139/31, O2 saturation 100% on room air. General examination: This is a chronically ill-looking, 63-year-old female, lying in bed in no acute distress. Cardiovascular exam: S1 and S2 heard. No murmurs, gallops, or rubs. Regular rate and rhythm. Respiratory exam: Clear bilaterally to auscultation. No work of breathing or using accessory muscles. Abdomen: Soft, nontender to palpation. Bowel sounds present. No organomegaly. Extremities: No clubbing, cyanosis, or edema. Peripheral pulses present in both legs. Neurological exam: Patient alert and oriented x3. Moves 4 extremities. LABORATORY DATA: There are no labs from today. ASSESSMENT AND PLAN: 1. L2-L3 diskitis with osteomyelitis. The patient clinically feeling better. Less pain in the affected area. Currently receiving daptomycin. We will continue with that medication pending culture results. Dr. Gandhi is planning, once we identify the organism that is causing this infection, to call Neurosurgery at [place] to see if he needs to receive surgery or not. The culture from the drainage showed no growth, so we will follow his recommendations. 2. Septic arthritis of the left shoulder secondary to oxacillin-sensitive Staphylococcus aureus. We will continue with current medication. 3. Insulin-dependent diabetes mellitus. We will continue with Lantus and sliding scale insulin. Accu-Chek before meals and also at bedtime. 4. Diabetic neuropathy. We will continue with Neurontin. 5. Situational depression. We will continue with Zoloft. 6. Constipation. The patient is receiving stool softeners on a daily basis. 7. Disposition: At this point, we will keep this patient over the weekend, and will continue with daptomycin. Will leave management of antibiotics to Dr. Gandhi. cc: Mainor Montes MD
[2019-02-07] MEDS: CUBICIN 600 MG in NS 100 ML IV SCH (16:43)
--- NOTE | 2019-02-07 20:57 | INFECTIOUS DISEASE PROGRESS NO ---
DATE: 02/07/2019 PRESENT ILLNESS: The patient has diskitis with osteomyelitis at L-spine 2 to 3. She does not have a psoas abscess. MEDICATIONS: The patient is on daptomycin. This is day 3 of treatment with it. OBJECTIVE: Vital signs: Temperature is 97.8 degrees, pulse 75, respirations 19, blood pressure 114/54. Generally this is an obese, chronically ill-appearing, middle-aged female. She is in no acute distress. She says her back feels much better since she had the aspiration performed, and the patient started wearing her brace. Head, eyes, ears, nose, throat: She can hear my spoken words and see near objects. She does not have any white patches in her mouth. Neck: No meningismus. Lungs clear to auscultation.Cardiovascular: Regular heart rate. Abdomen soft, obese and nontender. Back: The site where the aspiration took place is not swollen, red or draining. Extremities: The patient's left shoulder incision is intact. DIAGNOSTIC DATA: There is no new radiographic study. LABORATORY DATA: Blood cultures are pending. Disk space aspirate cultures are also pending. The patient's white blood cell count from the disk space was 176,600 white blood cells, of which 97% were polymorphonuclear. As mentioned above, the culture thus far is negative. ASSESSMENT AND PLAN: 1. The patient has L2-L3 diskitis with probable osteomyelitis. I am going to continue daptomycin. Also we did find a brace for the patient and I reminded her to wear it when she is sitting, standing or walking, but when she is lying in bed she can take it off. I am going to call one of the neurosurgeons at [place] and check with him about the patient's treatment, specifically, does the patient need to have surgery now? 2. Comorbidities: The patient has had multiple hospitalizations. She had an abscess in her left shoulder and she became bacteremic from it. While she was bacteremic she could have seeded her lumbar spine. The patient also has diabetes mellitus, gastroesophageal reflux disease and sleep apnea. cc: Wil Gandhi MD
[2019-02-08] MEDS: NORCO-10 PO PRN ×5 (03:55→21:13)
[2019-02-08] MEDS: HUMULIN R SUBQ SCH ×4 (06:12→21:13)
[2019-02-08 07:19] LABS: BASO# 0.05 X1000 (0.0-0.2); BASO% 0.5 % (0.0-0.8); EOS# 0.33 X1000 (0.0-0.7); EOS% 3.4 % (0.0-10.0); HEMATOCRIT 28.4 % (37.0-47.0); HEMOGLOBIN 8.2 g/dL (12.0-16.0); IMM GRAN# 0.05 X1000 (0.0-0.04); IMM GRAN% 0.5 % (0.0-0.5); LYMPH# 1.84 X1000 (1.2-3.4); LYMPH% 18.7 % (20.5-51.1); MCH 23.1 PG (27-31); MCHC 28.9 g/dL (33-37); MONO# 0.75 X1000 (0.11-0.59); MONO% 7.6 % (1.7-9.3); MPV 9.6 FL (7.4-10.4); NEUT# 6.82 X1000 (1.4-6.5); NEUT% 69.3 % (42.2-75.2); PLT 446 X1000 (130-400); RBC 3.55 XMIL (4.2-5.4); RDW 15.3 % (11.5-14.5); WBC 9.84 X1000 (4.8-10.8)
[2019-02-08 07:33] LABS: AGAP 12; BUN 18 mg/dL (8-22); CALCIUM 8.9 mg/dL (8.8-10.2); CHLORIDE 99 mmol/L (98-107); COSMO 276; CREATININE 0.9 mg/dL (0.5-0.9); ESTIMATED GFR > 60; GLUCOSE 109 mg/dL (70-104); POTASSIUM 4.3 mmol/L (3.5-5.1); SODIUM 137 mmol/L (136-145); TCO2 26 mmol/L (25-35)
[2019-02-08] MEDS: FLEXERIL PO SCH ×2 (08:43→21:13)
[2019-02-08] MEDS: ASPIRIN EC PO SCH (08:43)
[2019-02-08] MEDS: LANTUS INSULIN SUBQ SCH ×2 (08:43→21:13)
[2019-02-08] MEDS: JANUVIA PO SCH (08:43)
[2019-02-08] MEDS: MOTRIN PO PRN (08:44)
[2019-02-08] MEDS: NEURONTIN PO SCH ×3 (08:44→21:13)
[2019-02-08] MEDS: PLAVIX PO SCH (08:44)
[2019-02-08] MEDS: ZOLOFT PO SCH (08:44)
[2019-02-08] MEDS: HUMALOG SUBQ SCH ×3 (08:44→17:13)
[2019-02-08] MEDS: VITAMIN D PO SCH (08:44)
[2019-02-08] MEDS: LOVENOX SUBQ SCH (08:44)
--- NOTE | 2019-02-08 13:59 | PROGRESS NOTE ---
DATE: 02/08/2019 SUBJECTIVE: Patient reports feeling fine. Mild back pain, but getting better, according to her. OBJECTIVE: Vital Signs: Temperature 98.1 degrees, heart rate 65, respiratory rate 19, blood pressure 101/51, O2 saturation 99% on room air. General: This is a morbidly obese 63-year-old female, lying in bed, in no acute distress. Cardiovascular: S1, S2 heard. No murmurs, gallops, or rubs. Regular rate and rhythm. Respiratory: Clear bilaterally to auscultation. No work of breathing or using accessory muscles. Abdomen: Soft. Nontender to palpation. Bowel sounds present. No organomegaly. Extremities: No clubbing, cyanosis, or edema. Peripheral pulses present in both legs. Neurological: Patient is alert and oriented x3. Moves 4 extremities. LABORATORY DATA: 1. Reviewed. ASSESSMENT: 1. L2-L3 diskitis with osteomyelitis. Patient continues to receive daptomycin. Dr. Gandhi is on board. Plan is to consult Neurosurgery in [place] once we identify the results of the cultures. The culture from secretion in the CT-guided biopsy is still pending, and it showed gram-positive cocci only. I think for Sunday it will be available so we will see what Dr. Gandhi has to say. In the meantime, we will continue with daptomycin. 2. Septic arthritis of the left shoulder secondary to Staphylococcus areas. Most likely, that was the source of the infection that went to the L2-L3. At this point, we will continue with the same management. 3. Insulin-dependent diabetes mellitus, type 2. We will continue with Lantus on sliding scale insulin as well. 4. Diabetic neuropathy. We will continue with Neurontin. 5. Situational depression. We will continue with Zoloft. 6. Constipation. We will continue with stool softener. DISPOSITION: At this point, we will continue with daptomycin on Sunday. Once we have the results of the culture from secretions from his L2-L3 diskitis available, we will call Neurosurgery to see there is any surgical management warranted for this patient. cc: Mainor Montes MD
[2019-02-08] MEDS: CUBICIN 600 MG in NS 100 ML IV SCH (17:12)
[2019-02-09] MEDS: NORCO-10 PO PRN ×5 (06:24→22:25)
[2019-02-09] MEDS: HUMULIN R SUBQ SCH ×4 (06:24→20:09)
[2019-02-09 07:02] LABS: BASO# 0.04 X1000 (0.0-0.2); BASO% 0.4 % (0.0-0.8); EOS# 0.41 X1000 (0.0-0.7); EOS% 4.2 % (0.0-10.0); HEMATOCRIT 27.9 % (37.0-47.0); HEMOGLOBIN 8.2 g/dL (12.0-16.0); IMM GRAN# 0.06 X1000 (0.0-0.04); IMM GRAN% 0.6 % (0.0-0.5); LYMPH# 1.78 X1000 (1.2-3.4); LYMPH% 18.1 % (20.5-51.1); MCH 23.7 PG (27-31); MCHC 29.4 g/dL (33-37); MCV 80.6 FL (81-99); MONO# 0.69 X1000 (0.11-0.59); MPV 9.7 FL (7.4-10.4); NEUT# 6.87 X1000 (1.4-6.5); NEUT% 69.7 % (42.2-75.2); PLT 377 X1000 (130-400); RBC 3.46 XMIL (4.2-5.4); RDW 15.4 % (11.5-14.5); WBC 9.85 X1000 (4.8-10.8)
[2019-02-09 07:38] LABS: POTASSIUM 4.8 mmol/L (3.5-5.1)
[2019-02-09] MEDS: HUMALOG SUBQ SCH ×3 (08:26→18:22)
[2019-02-09] MEDS: FLEXERIL PO SCH ×2 (08:26→20:09)
[2019-02-09] MEDS: LOVENOX SUBQ SCH (08:26)
[2019-02-09] MEDS: NEURONTIN PO SCH ×3 (08:26→20:09)
[2019-02-09] MEDS: MOTRIN PO PRN (08:26)
[2019-02-09] MEDS: VITAMIN D PO SCH (08:26)
[2019-02-09] MEDS: LANTUS INSULIN SUBQ SCH ×2 (08:26→20:09)
[2019-02-09] MEDS: ASPIRIN EC PO SCH (08:26)
[2019-02-09] MEDS: ZOLOFT PO SCH (08:27)
[2019-02-09] MEDS: PLAVIX PO SCH (08:27)
[2019-02-09] MEDS: JANUVIA PO SCH (08:27)
--- NOTE | 2019-02-09 11:47 | PROGRESS NOTE ---
DATE: 02/09/2019 SUBJECTIVE: Patient reports feeling okay. Denies any fever or chills. She was about to start working with physical therapy. OBJECTIVE: Vital Signs: Temperature 98.0 degrees, heart rate 79, respiratory rate 19, blood pressure 107/49, O2 saturation 93% on room air. General Examination: This is a morbidly obese, 63-year-old, female lying in bed, in no acute distress. Cardiovascular Examination: S1 and S2 heard. No murmurs, gallops, or rubs. Regular rate and rhythm. Respiratory Examination: Clear bilaterally to auscultation. No work of breathing or using accessory muscles. Abdomen: Soft, nontender to palpation. Bowel sounds present. No organomegaly. Extremities: No clubbing, cyanosis, or edema. Peripheral pulses present in both legs. Neurological Examination: The patient is alert and oriented x3. Moves 4 extremities. Laboratory Data: Reviewed. ASSESSMENT AND PLAN: 1. L2-L3 diskitis with osteomyelitis. We have isolated Staphylococcus aureus methicillin- sensitive Staphylococcus aureus. Patient is receiving daptomycin. Dr. Gandhi from infectious disease, who is on board, is planning to talk to neurosurgeons in order to see if there is any surgical approach warranted for this patient. If not, we will continue with medical management. We will see for how long Dr. Gandhi wants to keep this patient on antibiotics. At this point, we will continue with daptomycin. 2. Septic arthritis of the left shoulder secondary to Staphylococcus aureus. We will continue with the same management, most likely the source of the diskitis. 3. Insulin-dependent diabetes mellitus type 2. We will continue with Lantus and sliding scale insulin as well. 4. Diabetic neuropathy. We will continue Neurontin. 5. Situational depression. We will continue with Zoloft. 6. Constipation. We will continue with stool softener. 7. Disposition, as we mentioned above. cc: Mainor Montes MD
[2019-02-09] MEDS: CUBICIN 600 MG in NS 100 ML IV SCH (18:22)
[2019-02-10] MEDS: NORCO-10 PO PRN ×3 (05:42→15:09)
[2019-02-10] MEDS: HUMULIN R SUBQ SCH ×2 (06:09→12:23)
[2019-02-10 06:58] LABS: CALCIUM 9.1 mg/dL (8.8-10.2); POTASSIUM 4.7 mmol/L (3.5-5.1)
[2019-02-10 07:22] LABS: BASO# 0.04 X1000 (0.0-0.2); BASO% 0.3 % (0.0-0.8); EOS# 0.41 X1000 (0.0-0.7); EOS% 3.2 % (0.0-10.0); HEMATOCRIT 28.2 % (37.0-47.0); HEMOGLOBIN 8.2 g/dL (12.0-16.0); IMM GRAN# 0.09 X1000 (0.0-0.04); IMM GRAN% 0.7 % (0.0-0.5); LYMPH# 1.57 X1000 (1.2-3.4); LYMPH% 12.4 % (20.5-51.1); MCH 23.4 PG (27-31); MCHC 29.1 g/dL (33-37); MCV 80.6 FL (81-99); MONO# 0.67 X1000 (0.11-0.59); MONO% 5.3 % (1.7-9.3); MPV 9.9 FL (7.4-10.4); NEUT# 9.84 X1000 (1.4-6.5); NEUT% 78.1 % (42.2-75.2); PLT 440 X1000 (130-400); RDW 15.6 % (11.5-14.5); WBC 12.62 X1000 (4.8-10.8)
[2019-02-10] MEDS: LANTUS INSULIN SUBQ SCH (08:48)
[2019-02-10] MEDS: HUMALOG SUBQ SCH ×2 (08:48→12:23)
[2019-02-10] MEDS: ASPIRIN EC PO SCH (08:49)
[2019-02-10] MEDS: PLAVIX PO SCH (08:49)
[2019-02-10] MEDS: JANUVIA PO SCH (08:49)
[2019-02-10] MEDS: NEURONTIN PO SCH ×2 (08:49→15:09)
[2019-02-10] MEDS: MOTRIN PO PRN (08:50)
[2019-02-10] MEDS: ZOLOFT PO SCH (08:50)
[2019-02-10] MEDS: VITAMIN D PO SCH (08:50)
[2019-02-10] MEDS: FLEXERIL PO SCH (08:50)
[2019-02-10] MEDS: LOVENOX SUBQ SCH (08:50)
[2019-02-10] MEDS ORDERED: KEFZOL 2 GM/D5W 2 GM/50 ML IVPB IV SCH (09:15)
--- NOTE | 2019-02-10 11:16 | INFECTIOUS DISEASE PROGRESS NO ---
DATE: 02/10/2019 PRESENT ILLNESS: The patient has an oxacillin sensitive Staph aureus diskitis with osteomyelitis at lumbar spine 2 to 3. MEDICATIONS: The patient had been on daptomycin, but today I am switching her to Ancef. The patient has had hives after penicillin. However in October of this year the patient was given a prescription for Cefdinir from the [facility] and the patient tells me she tolerated it well. She did not have any problem. Because of this I think she should tolerate Ancef well because both cefdinir and Ancef are cephalosporin antibiotics. In addition I have put that the nurse is to observe the patient during the first dose of Ancef. PHYSICAL EXAMINATION: Vital Signs: Temperature is 97.7 degrees, pulse respirations 8, blood pressure 120/50. General: This is an obese, chronically ill-appearing, middle-aged female. Today, she is having some significant pain in her back with radiation down her leg. Head/eyes/ears/nose/throat: She can hear my spoken words and see near objects. She does not have any white coating of her tongue. Neck: No pain with movement of her neck. Lungs: Clear to auscultation. Cardiovascular: Heart rate is regular. Back: No tenderness over L2-3. Abdomen: Soft and nontender. Neurologic: The patient is alert. She can move her extremities but she is having a lot of back pain with radiation into the left leg. LAB AND X-RAY: There is no new radiographic study. The patient's disk space aspirate grew oxacillin sensitive Staph aureus. The white blood cell count from the son from the disk space was 176,600, of which 97% were polymorphonuclear white cells. The patient's CBC shows a white count of 12,620, hemoglobin 8.2, and platelet count 440,000. Creatinine is 1.0, GFR is 56. ASSESSMENT AND PLAN: The patient has L2-3 diskitis with osteomyelitis. I am putting the patient on Ancef today as mentioned above, and I have requested that the nurse observe the patient during the first dose. I have called and obtained an appointment for the patient to see Dr. Zeeshan Hu who is a neurosurgery spine surgeon tomorrow morning at his office at [address] [place], [place] [id number] in [place], [place]. The office is on floor 1. The patient's appointment is at 8:45 a.m. I told the patient to be there much earlier so she can fill out all or papers. I have put in a consult for [employer] to supply the patient's home IV antibiotic, namely Ancef in case the patient is not put in the hospital by Dr. Hu for surgery. I plan to treat the patient for 6 weeks with IV Ancef but this may change after she sees Dr. Hu who may want to perform surgery on her. I have given the patient an appointment to come to my office in 3 weeks. Some of the side effects of Ancef including rash and diarrhea have been explained to the patient who agrees with treatment. COMORBIDITIES: Comorbidities the patient has had multiple hospitalizations. She initially had an abscess in her left shoulder and she became bacteremic from it. Most likely the patient disk space became infected due to hematogenous spreading. The patient also has diabetes mellitus, gastroesophageal reflux disease, and sleep apnea. cc: Wil Gandhi MD
[2019-02-10 14:49] VITALS: BP 101/43
--- NOTE | 2019-02-11 11:25 | DISCHARGE SUMMARY ---
ADMISSION DATE: 02/03/2019 DISCHARGE DATE: 02/10/2019 ADMISSION DIAGNOSIS: 1. Right hip, back region pain suspected sciatica. 2. Diabetes mellitus type 2. 3. Hypertension. 4. Left shoulder abscess currently on antibiotics. DISCHARGE DIAGNOSIS: 1. 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 Gandhi. 2. Septic arthritis of the left shoulder secondary to Staphylococcus aureus. 3. Insulin-dependent diabetes mellitus type 2. 4. Diabetic neuropathy. 5. Situational depression. 6. Constipation. CONSULTATIONS: Wil Gandhi MD. SURGERIES OR PROCEDURES: CT-guided drainage of the psoas abscess. HOSPITAL COURSE: On 02/03/2019, Ms. Court Rodriguez a 63-year-old female presented to the emergency department with complaints of right hip and back pain for 4 days with a medical history of diabetes mellitus type 2, hypertension, CAD, left shoulder abscess and she is currently antibiotics for, and what brought her in was the excruciating pain that she was having and that could not be relieved, unable to bear weight, and essentially was admitted for the intractable pain that was caused by the possible suspected sciatica of the right hip and back region. Given the severeness of the pain that she was experiencing, she had an abdominal and pelvic CT and a lumbar spine MRI performed, and the MRI showed diskitis at L2 to L3 with probable osteomyelitis at L2-3 and possibly L4 with a right psoas abscess. There was very advanced degenerative arthropathy. Infectious Disease was on board, had her on daptomycin. She had a drainage of the abscess, which was penicillin resistant but oxacillin sensitive. The drainage was performed on 02/06/[address] Pain became much better controlled. Apparently, there was not a psoas abscess and since the pain is much better and improved it is okay for her to be discharged and she will follow up with neurosurgeon, Dr. Zeeshan Hu, tomorrow about the diskitis with osteomyelitis, and she will continue her daptomycin and follow up with Dr. Gandhi as well. DISCHARGE VITAL SIGNS: Temperature 97.7, heart rate 76, respiratory rate 18, blood pressure 115/49, O2 saturation 99% on room air. DISCHARGE LAB DATA: White blood cells 12,000, hemoglobin 8, hematocrit 28, platelet count 440. Sodium 137, potassium 4.7, BUN 21, creatinine is 1.0, glucose 157, calcium 9.1. CK 93. MICROBIOLOGY: Blood cultures negative. Culture of the right hip aspirate resistant to penicillin, sensitive to oxacillin Staphylococcus aureus. IMAGING: On 02/03/2019, chest x-ray: PICC line in the SVC. Hip and pelvic x- ray negative. On 02/05/2019, lumbar spine MRI: Diskitis L2 to L3 with probable osteomyelitis at L2-3, possibly 4, with right psoas abscess, very advanced degenerative arthropathy, increased fluid signal associated with L2 and 3 intervertebral disk spaces, and then 02/06/2019 was the soft tissue biopsy CT-guided. Telemetry read normal sinus rhythm. DISCHARGE MEDICATIONS: 1. Aspirin enteric-coated 81 mg p.o. daily. 2. Januvia 100 mg p.o. daily. 3. Lantus 86 units subcutaneously twice daily. 4. MiraLAX 17 g p.o. p.r.n. 5. Insulin Aspart 20 units subcutaneously t.i.d. 6. Plavix 75 mg p.o. daily. 7. Zoloft 50 mg p.o. daily. 8. Flexeril 10 mg p.o. nightly. 9. Neurontin 600 mg p.o. t.i.d. 10.[place] 10 1 tablet p.o. every 4 hours p.r.n. 11.Will continue on Kefzol per PICC line 2 g IV every 8 hours. 12.Lantus 46 units subcutaneously twice daily. DISCHARGE DIET: Diabetic. DISCHARGE ACTIVITY: As tolerated with physical therapy. No heavy lifting, no strenuous activity. Wear back brace except when lying down. DISCHARGE PHYSICIAN FOLLOWUPS: Dr. Zeeshan Hu in [place] tomorrow and Dr. Wil Gandhi on 03/04/[address] Reese Iglesias. DISCHARGE INSTRUCTIONS: If your condition changes, contact a physician and/or return to the emergency department. Changes may include but are not limited to shortness of breath, increased fatigue, excessive bleeding, unexplained weight loss or gain, unmanageable pain, signs or symptoms of infection. WOUND CARE: Keep PICC line area clean and dry. DISCHARGE DISPOSITION: Home with [facility]. Dictated by CRISTI Jordan for Mainor Montes MD Addendum: Patient seen and examined by myself. Agree with CRISTI note. It reflects my assessment and plan. Patient is being discharged in stable condition. She will be seen by Dr. Hu tomorrow for evaluation of diskitis. cc: CRISTI Jordan MD MTDD
== END 2019-02-10 16:31 | disposition home health service (06) | DRG 638 ==
LOC: SUPCPDRO → ED 14:16 → 3N 14:16 → OBSVTOIN 22:50 → SUATTDRO 22:50
PROVIDERS: ATTEND Internal Medicine